=== PATIENT | female | born 1990 | race Caucasian/White ===

== ENCOUNTER 2016-10-26 23:40 | Outpatient (CLI) | payer OTHER ==
[~2016-10-26] VITALS: Ht 157.5 cm; Wt 59.1 kg
[~2016-10-26 23:40] MED LIST: LORA1TAB PO
[2016-10-26 23:47] VITALS: Ht 157.5 cm; Wt 59.1 kg
[2016-10-26 23:53] VITALS: BP 114/75; PULSE 66; RESP 16
[2016-10-26] MEDS ORDERED: PRENAT PO (23:54)
[2016-10-27 01:17] LABS: ADD UMIC YES; URINE BILIRUBIN (Dip) NEGATIVE (NEGATIVE); URINE BLOOD (Dip) NEGATIVE (NEGATIVE); URINE COLOR LT. YELLOW (YELLOW); URINE GLUCOSE (Dip) NEGATIVE (NEGATIVE); URINE KETONES (Dip) NEGATIVE (NEGATIVE); URINE LEUKOCYTE ESTERASE (Dip) 1+ (NEGATIVE); URINE NITRITE (Dip) NEGATIVE (NEGATIVE); URINE TOTAL PROTEIN (Dip) NEGATIVE (NEGATIVE); URINE UROBILINOGEN (Dip) 0.2 E.U./dL (0.1-1.0)
--- NOTE | 2016-10-27 01:20 | RADRPT ---
PROCEDURE: Obstetrical ultrasound, limited. CLINICAL INDICATION: labor. TECHNIQUE: Multiple sonographic images of the pelvis were obtained using transabdominal technique . Images were obtained with mclean scale and color Doppler. Transvaginal evaluation of the cervix was also performed. The images were reviewed on a PACS workstation. COMPARISON: No prior studies are available for comparison. FINDINGS: There is a single living intrauterine gestation with the fetus in a breech presentation. hear t tones of 143 beats per minute are identified. The placenta is fundal in location, grade 1. The c ervix is closed measuring 3.0 cm. IMPRESSION: Single viable intrauterine gestation. Cervical length of 3.0 cm. .Dangelo Alonso MD, Date Time Electronically viewed and signed by .Dangelo Alonso MD, MD on 10/27/2016 01:19 .T/
[2016-10-27 01:38] LABS: BACTERIA,URINE MODERATE; SQUAMOUS EPITHELIAL CELL,UR MODERATE; URINE RBCS 0-2 /HPF (0)
--- NOTE | 2016-10-27 02:02 | TRIAGE ---
OB Triage Datetime Report Generated by CPN: 10/27/2016 02:02 Datetime: 10/27/2016 00:05 EGA: 27.6 Datetime: 10/26/2016 23:55 Time of Arrival: 10/26/2016 23:37 Arrived By: Wheelchair Arrived From: Home Chief Complaint: VAGINAL PAIN CRAMPING Movement: Present Contractions: Irregular Time Contractions Began: 10/26/2016 19:00 Rupture of Membranes: Denies Vaginal Bleeding: None Vaginal Discharge: Denies Recent Sexual Intercouse: Denies Abdominal Trauma: Not Applicable Patient Complaints: Cramping; Dependent Edema; Other Additional Patient Complaints: SWOLLEN FEET SPIDER BITE ON LEGS/FEET Time Provider Notified: 10/27/2016 00:05 Provider Notified: DR. GOMEZ Initial Plan: EFM Datetime: 10/26/2016 23:49 Labor Evaluation Monitor Mode: External Heart Rate Monitor Mode: External US Comments: FHT 150 Pain Assessment Pain Scale: 8 Pain Presence: Intermittent Pain Type: Cramping Pain Location: Abdomen Pain Goal: 2
--- NOTE | 2016-11-09 23:31 | QN ---
Documentation Comment OB TRIAGE Diagnosi: Threatened labor SAIMA GOMEZ MD Nov 09, 2016 23:31
== END 2016-10-27 02:05 | disposition home or self-care (01) ==
LOC: OBT 23:40 → L-D 23:40 → OBT 10-27 02:05
PROVIDERS: ATTEND Obstetrics & Gynecology
DX: O60.02 Preterm labor without delivery, second trimester (principal); Z3A.27 27 weeks gestation of pregnancy
CPT/HCPCS: 76817; 81001; Z7500; G0463

== ENCOUNTER 2016-11-23 22:09 | Inpatient (IN) | payer OTHER ==
[~2016-11-23] VITALS: Ht 157.5 cm; Wt 62.7 kg
[~2016-11-23 22:09] MED LIST changes: -LORA1TAB PO; +PRENAT PO
[2016-11-23 22:14] VITALS: BP 165/104; PULSE 65; RESP 18
[2016-11-23 22:30] LABS: URINE BLOOD (Dip) POC 1+ (NEGATIVE)
[2016-11-23] MEDS ORDERED: MAGNESIUM SULFATE 4 GM/100 ML 100 ML IV ONE (23:00)
[2016-11-23] MEDS ORDERED: ACETAMINOPHEN 325 MG TAB PO PRN (23:00)
[2016-11-23 23:01] LABS: ADD UMIC YES; UR BILIRUBIN (Dip) NEGATIVE (NEGATIVE); UR BLOOD (Dip) 1+ (NEGATIVE); UR CLARITY CLEAR (CLEAR); UR COLOR YELLOW (YELLOW); UR GLUCOSE (Dip) NEGATIVE (NEGATIVE); UR KETONES (Dip) NEGATIVE (NEGATIVE); UR LEUKOCYTE ESTERASE (Dip) NEGATIVE (NEGATIVE); UR NITRITE (Dip) NEGATIVE (NEGATIVE); UR TOTAL PROTEIN (Dip) 4+ (NEGATIVE); UR UROBILINOGEN (Dip) 0.2 E.U./dL (0.1-1.0)
[2016-11-23 23:12] LABS: ADD SCAN DIFF NO
[2016-11-23 23:13] LABS: BASOPHILS % 0.2 % (0.0-2.0); EOSINOPHILS # 0.1 10^3/ul (0.0-0.5); EOSINOPHILS % 0.6 % (0.0-7.0); HEMATOCRIT 32.8 % (37.0-47.0); HEMOGLOBIN 11.3 g/dl (12.0-16.0); LYMPHOCYTES # 2.6 10^3/ul (0.8-2.9); LYMPHOCYTES % 26.2 % (15.0-51.0); MEAN CORPUSCULAR HEMOGLOBIN 32.5 pg (29.0-33.0); MEAN CORPUSCULAR HGB CONC 34.5 g/dl (32.0-37.0); MEAN CORPUSCULAR VOLUME 94.3 fl (82.0-101.0); MEAN PLATELET VOLUME 10.3 fl (7.4-10.4); MONOCYTE # 0.7 10^3/ul (0.3-0.9); MONOCYTES % 7.1 % (0.0-11.0); NEUTROPHIL # 6.4 10^3/ul (1.6-7.5); NEUTROPHILS % 65.4 % (39.0-77.0); PLATELET COUNT 228 10^3/UL (140-415); RED BLOOD COUNT 3.48 10^6/ul (4.20-5.40); RED CELL DISTRIBUTION WIDTH 12.5 % (11.5-14.5); WHITE BLOOD COUNT 9.8 10^3/ul (4.8-10.8)
[2016-11-23 23:18] LABS: UR BACTERIA FEW /HPF (NONE SEEN); UR SQUAMOUS EPITHELIAL CELL FEW /HPF (FEW)
--- NOTE | 2016-11-23 23:22 | RADRPT ---
PROCEDURE: OB ultrasound for biophysical profile CLINICAL INDICATION: labor. TECHNIQUE: Multiple sonographic images of the gravid uterus performed. The images were reviewed on a PACS workstation. COMPARISON: 10/27/2016 FINDINGS: A single live intrauterine is identified with heart rate of 161 bpm. Fet us is in a cephalic presentation. Placenta is located posteriorly. Biophysical profile: breathing movement = 2/2 tone = 2/2 motion = 2/2 ANT = 2/2 ANT = 6.2 cm. Cervix is 3.42 cm in length. IMPRESSION: 1. Single live intrauterine gestation. 2. Biophysical profile = 8/8. 3. ANT = 6.2 cm. RPTAT: HMVK .Jeffrey West MD, MD Date Time Electronically viewed and signed by .Jeffrey West MD, MD on 11/23/2016 23:22 .K/
--- NOTE | 2016-11-23 23:24 | RADRPT ---
PROCEDURE: US OB. CLINICAL INDICATION: labor. TECHNIQUE: Multiple sonographic images of the pelvis were obtained. Transabdominal imaging only w as performed. The images were reviewed on a PACS workstation. COMPARISON: None. FINDINGS: Single live intrauterine is identified. Cardiac activity is present with 150 beats per mi nute. There is a vertex presentation. Measurements: BPD = 29 weeks 3 days. HC = 29 weeks 4 days. AC = 29 weeks 0 days. FL = 30 weeks 4 days. Estimated gestational age of approximately 29 weeks 5 days. The estimated date of delivery is 02/03/2017. The EFW = 1423 g which is at the less than 3rd percentile. The placenta is posterior. IMPRESSION: Single live intrauterine gestation of approximately 29 weeks 5 days. weight is at the less th an 3rd percentile. RPTAT: HMVK .Jeffrey West MD, MD Date Time Electronically viewed and signed by .Jeffrey West MD, MD on 11/23/2016 23:24 .K/
[2016-11-23 23:29] LABS: INR 0.84; PROTIME 11.5 Sec (12.2-14.2); PT RATIO 0.9
[2016-11-23 23:30] LABS: PARTIAL THROMBOPLASTIN TIME 25.1 Sec (25.0-35.0)
[2016-11-23] MEDS: LACTATED RINGER'S 1,000 ML IV SCH (23:31)
[2016-11-23 23:32] LABS: ALBUMIN 3.3 g/dl (3.3-4.9); ALBUMIN/GLOBULIN RATIO 1.22; BILIRUBIN,INDIRECT 0.1 mg/dl (0-1.1); BILIRUBIN,TOTAL 0.1 mg/dl (0.2-1.3); CALCIUM 8.6 mg/dl (8.4-10.2); CREATININE 0.89 mg/dl (0.44-1.00); POTASSIUM 4.1 mmol/L (3.5-5.1); URIC ACID 6.3 mg/dl (3.1-7.9)
[2016-11-23] MEDS: BETAMET NA PHOS/AC(6 MG/ML) 5ML INJ IM SCH (23:46)
[2016-11-24] MEDS: MAGNESIUM SULFATE 20 GM/500 ML 500 ML IV SCH ×3 (00:14→20:07)
--- NOTE | 2016-11-24 05:52 | TRIAGE ---
OB Triage Datetime Report Generated by CPN: 11/24/2016 05:51 Datetime: 11/24/2016 04:40 Assessment Type: Admission Assessment Vaginal Bleeding: None Maternal Assessment Level of Consciousness: Fully Conscious DTR's/Clonus: DTRs 2+; No Clonus Headache: Denies Blurred Vision: No Respiratory Effort: Unlabored Breath Sounds, Left: Clear and Equal Breath Sounds, Right: Clear and Equal Nausea/Vomiting: Denies RUQ Epigastric Pain: Denies Lower Extremities Edema: None Degree: None Upper Extremities Edema: None Degree: None Facial Edema: None Fall Risk Assessment History of Falling: (0) No Secondary Diagnosis: (0) No Ambulatory Aid: (0) Bedrest/Nurse Assist IV Therapy: (20) Yes Gait: (0) Normal/Bedrest/Immobile Mental Status: (0) Oriented to Own Ability Fall Score: 20 Fall Risk Score Definition: No Risk: No action required Labor Evaluation Frequency: 0 Duration (sec)2399: 0 Pattern: Normal: <= 5 Contractions in 10 Minutes Resting Tone [place]: Relaxed Heart Rate FHR Baseline Rate: 135 Variability: Moderate 6-25 bpm Decelerations: None Category: Category I Pain Assessment Pain Scale: 0 Pain Presence: None/Denies Pain Type: N/A Pain Goal: 0 Vaginal Exam Membrane Status: Intact Datetime: 11/24/2016 04:20 Time of Arrival: 11/23/2016 22:01 EGA: 31.6 Arrived By: Wheelchair Arrived From: Home Chief Complaint: w/ c/o high BP in morning, WORRELL, heartburn, pelvic pain, pedal edema, and anxi ety. Hx iol at 34 weeks for PIH last Movement: Present Contractions: Denies/Absent Rupture of Membranes: Denies Vaginal Bleeding: None Vaginal Discharge: Denies Recent Sexual Intercouse: Denies Abdominal Trauma: Not Applicable Patient Complaints: Headache; Epigastric Pain; Dependent Edema; Other Provider Notified: Dr Oquendo Initial Plan: EFM, PIH labs Datetime: 11/24/2016 04:13 Stage of : Antepartum Datetime: 11/24/2016 01:44 Contraction Comments: just come back from br Datetime: 11/24/2016 00:01 Vaginal Exam Membrane Status: Intact Datetime: 10/27/2016 01:54 Stage of : OB Triage Monitor Mode: External Pattern: Normal: <= 5 Contractions in 10 Minutes Resting Tone [place]: Relaxed Heart Rate FHR Baseline Rate: 145 Monitor Mode: External US FHR Baseline Changes: No Baseline Change Variability: Moderate 6-25 bpm Accelerations: 15X15 Decelerations: None Category: Category I Datetime: 10/27/2016 00:05 EGA: 27.6
[2016-11-24] MEDS: LACTATED RINGER'S 1,000 ML IV SCH ×2 (09:02→20:27)
[2016-11-24] MEDS: SENNA TAB PO SCH (10:53)
[2016-11-24] MEDS: MULTIVIT/MIN/FOLATE/IRON/PREN TAB PO SCH (10:53)
[2016-11-24] MEDS: AL HYDROX/MG HYDROX/SIMETH 30 ML CUP PO PRN ×2 (10:59→20:08)
--- NOTE | 2016-11-24 11:33 | HP ---
Date/Time of Note Date/Time of Note DATE: 11/24/16 TIME: 10:57 OB - History Hx of Present Free Text/Dictation 26y.o [id number] EDC 01/19/17 who had PTB with last at 34w present to triage with c/o pelvic pain , heartburn(?epigastric pain) and pedal edema and mentioned she had high BP in the morning, denies blurred vision headache EFM no U.C U/S ANT 6.2 GA 29w5d - EFW 1423gm 3percentile cvl 3.4 BPP 8/8 urine protein ++++ but no increase DTR no ankle clonusPIH l initial B P 165/104 f/b 170/111 pt is extremely nervous magnesium sulfate was initiate with loading dose of 4gm BMZ given for poss early delivery since IUGR and PIH and oligohydroamnious combined PIH lab wnl except proteinuria 24hr urine for proein/cr admitted to antepartum for further evaluation and poss early delivery after perianatalogy consultation Chief Complaint: above mentioned Estimated Due Date: Jan 19, 2017 : 4 Para: 3 Spontaneous : 0 Therapeutic : 0 Care: Other Ultrasounds: Other Obstetrical Complications: Pre-eclampsia Medical Complications: None Past Family/Social History * Past Medical, Surgical, Family and Obstetric Histories reviewed from chart. Blood Type: A+ Rubella: immune RPR/VDRL: Negative GBS Status: Unknown HBsAG: Negative OB Admission Exam Vital Signs Vital Signs Vital Signs Date Time Temp Pulse Resp B/P Pulse Ox O2 Delivery O2 Flow Rate FiO2 11/23/16 22:14 98.4 65 18 165/104 Room Air Physical Exam HEENT: WNL Extremities: Edema Reflexes: Normal Cervical Dilatation: other Effacement: Other Station: Other Membranes: Intact Amniotic Fluid: Unevaluable Heart Rate: 150's Accelerations: Accelerations Present Decelerations: No Decelerations Varibility: Minimum Contractions on Admission: None Last 72 hours Lab Results CBC & BMP 11/23/16 23:05 Liver Function Test 11/23/16 23:05 Alanine Aminotransferase (ALT/SGPT) 26 Albumin 3.3 Alkaline Phosphatase 139 H Aspartate Amino Transf (AST/SGOT) 18 Direct Bilirubin 0.00 Total Protein 6.0 L Magnesium Level Test 6/21/17 05:55 Magnesium Level 6.0 *H OB Assessment/Plan Other Assessment: IUP 31w4d PIH IUGR oligohydramnios Other plan: admit to antepartum continue magnesium sulfate 24hr after 2nd dose of BMZ 24 hr urine for protein /cr TATIANNA AMAYA MD Nov 24, 2016 11:10
--- NOTE | 2016-11-24 12:02 | RADRPT ---
PROCEDURE: Obstetrical ultrasound with umbilical cord Dopplers CLINICAL INDICATION: Intrauterine growth retardation TECHNIQUE: Multiple sonographic images of the pelvis were obtained. The images were reviewed on a PACS workstation. COMPARISON: Obstetrical ultrasound from 11/23/2016 Gestational age by LMP: 32 weeks, 1 day FINDINGS: There is a single viable intrauterine gestation. Cardiac activity is present with 131 beats per minute. There is a vertex presentation. The placenta is posterior. There is no evidence for an abruption or placenta previa. There is a mildly low amount of amniotic fluid with an ANT = 7.5 cm. The umbilical cord is visualized and without abnormality. The umbilical artery has a systolic to diastolic ratio of 2.6 which is within normal limits. IMPRESSION: The umbilical artery has a systolic to diastolic ratio of 2.6 which is within normal limits. Mildly low ANT of 7.5 cm which is improved compared with the obstetrical ultrasound from yesterday w [facility] had an ANT of 6.2 cm. RPTAT: EE Physician Lilly Date Time Electronically viewed and signed by Physician Lilly on 11/24/2016 12:02 /
[2016-11-24] MEDS: LABETALOL 200 MG TAB PO SCH ×2 (12:49→21:08)
[2016-11-24 12:58] LABS: ADD SCAN DIFF NO
[2016-11-24 13:00] LABS: BASOPHILS % 0.1 % (0.0-2.0); HEMOGLOBIN 12.6 g/dl (12.0-16.0); LYMPHOCYTES # 1.1 10^3/ul (0.8-2.9); LYMPHOCYTES % 13.5 % (15.0-51.0); MEAN CORPUSCULAR HEMOGLOBIN 33.1 pg (29.0-33.0); MEAN CORPUSCULAR VOLUME 94.5 fl (82.0-101.0); MEAN PLATELET VOLUME 10.9 fl (7.4-10.4); MONOCYTE # 0.1 10^3/ul (0.3-0.9); MONOCYTES % 1.2 % (0.0-11.0); NEUTROPHIL # 6.8 10^3/ul (1.6-7.5); NEUTROPHILS % 84.5 % (39.0-77.0); PLATELET COUNT 232 10^3/UL (140-415); RED BLOOD COUNT 3.81 10^6/ul (4.20-5.40); RED CELL DISTRIBUTION WIDTH 12.4 % (11.5-14.5); WHITE BLOOD COUNT 8.1 10^3/ul (4.8-10.8)
[2016-11-24 13:27] LABS: ALBUMIN 3.6 g/dl (3.3-4.9); ALBUMIN/GLOBULIN RATIO 1.28; CALCIUM 6.9 mg/dl (8.4-10.2); CREATININE 0.83 mg/dl (0.44-1.00); POTASSIUM 4.3 mmol/L (3.5-5.1); TOTAL PROTEIN 6.4 g/dl (6.1-8.1)
--- NOTE | 2016-11-24 14:48 | CONS ---
DATE OF ADMISSION: 11/23/2016 DATE OF CONSULTATION: 11/24/2016 REFERRING PHYSICIAN: Dr. Weston. HISTORY OF PRESENT ILLNESS: I was asked to talk with this mother who is being admitted to [facility] with a 32-week gestation and PIH. Maternal history is as follows: Jarrod heller is a 26-year-old 4, para 3, term 2, 1 and living 3 with good care. ED C 01/19/2017. Mother's blood type is A positive, RPR nonreactive, rubella immune, HBsAg negative, H IV negative, GC and chlamydia cultures negative and GBS not done. Mother was admitted with increase d blood pressure and was given the first dose of betamethasone on 11/23/2016 at 2346 hours, and was also started on magnesium sulfate on 11/23/2016 at 2339 hours. Mother has history of delivery of on e at 34 weeks. The ultrasound on 11/23/2016 showed an estimated weight of 1423 grams and composite gest ational age of 29.5 weeks on ultrasound. EDC on ultrasound was 02/03/2017. I spoke with mother and mother seems to have a severe headache due to magnesium administration and h er last magnesium level was 7. I discussed with her about the being 32 weeks, small compared to usual 32 week delivery infants. I discussed about the risk of respiratory distress and treatmen t with oxygen administration, CPAP administration and possible Curosurf administration if the infant has respiratory distress syndrome. I also discussed about apnea of prematurity and treatment for t hat. I also discussed about the infant to be monitored for hyperbilirubinemia and treatment for jau ndice as well as possible antibiotic administration if infant is at risk for sepsis. Discussed abou t IV nutrition initially to be followed by tube feedings and subsequently to be nippled when the inf ant shows readiness for nippling. I discussed about the risk of developmental delay and intraventri cular hemorrhage, but not discussed in depth, as the mother had difficulty focusing as she had heada adilia. Mother wanted to know the overall health of the infant and I discussed with her about more than 95% of the infants doing well and going home with no significant problems. I also discussed about the i nfant to be monitored for all problems of prematurity during hospitalization and she will be updated on a regular basis. Encouraged her to pump breast milk, as mother is unsure at the present time. Discussed about good prognosis as well as outcome and concluded the discussion, as mother was unable to concentrate. Mother has 3 children at home, age 7 years, 5 years and 2 years. Dictated By: BRIANA RUIZ/NTS Conf#: [id number] DID#: [id number] CC: JOSELUIS WESTON MD;*EndCC*
[2016-11-24] MEDS: BETAMET NA PHOS/AC(6 MG/ML) 5ML INJ IM SCH (21:50)
[2016-11-24 22:27] LABS: ADD SCAN DIFF NO
[2016-11-24 22:30] LABS: BASOPHILS % 0.1 % (0.0-2.0); HEMATOCRIT 33.6 % (37.0-47.0); HEMOGLOBIN 11.6 g/dl (12.0-16.0); LYMPHOCYTES # 1.4 10^3/ul (0.8-2.9); MEAN CORPUSCULAR HEMOGLOBIN 32.3 pg (29.0-33.0); MEAN CORPUSCULAR HGB CONC 34.5 g/dl (32.0-37.0); MEAN CORPUSCULAR VOLUME 93.6 fl (82.0-101.0); MEAN PLATELET VOLUME 10.3 fl (7.4-10.4); MONOCYTE # 0.7 10^3/ul (0.3-0.9); MONOCYTES % 5.5 % (0.0-11.0); NEUTROPHIL # 10.3 10^3/ul (1.6-7.5); NEUTROPHILS % 82.3 % (39.0-77.0); PLATELET COUNT 232 10^3/UL (140-415); RED BLOOD COUNT 3.59 10^6/ul (4.20-5.40); RED CELL DISTRIBUTION WIDTH 12.5 % (11.5-14.5); WHITE BLOOD COUNT 12.5 10^3/ul (4.8-10.8)
--- NOTE | 2016-11-24 22:45 | PERINOTE ---
Date/Time of Note Date/Time of Note DATE: 11/24/16 TIME: 22:36 Assessment/Recommendations Other Assessments Preeclampsia with severe features (BP) IUP at 34 weeks GA Recommendations: Agree with plan for delivery at this time due to category 2 FHT record and maternal hyperreflexia OB Subjective Free Text/Dictaton Patient admitted with hypertension, new onset, likely preeclampsia. HD# 1 IUP @ 34W Complaints/Overnight events Complains of chest pain and blurry vision with magnesium Current Medications Current Medications Betamethasone Acet/Betameth SodPhos (Celestone Soluspan) 12 mg Q24H IM Last administered on 11/24/16 21:50; Admin Dose 12 MG; Start 11/23/16 at 23:00; Stop 11/24/16 at 23:01 Prenat Multivit/ Childcare Aide/Iron/Folic Ac ( S) 1 tab DAILY PO Last administered on 11/24/16 10:53; Admin Dose 1 TAB; Start 11/24/16 at 09:00 Senna (Senokot) 1 tab DAILY PO Last administered on 11/24/16 10:53; Admin Dose 1 TAB; Start 11/24/16 at 09:00 Acetaminophen (Tylenol Tab) 650 mg Q4H PRN PO PAIN AND OR ELEVATED TEMP Last administered on 11/24/16 18:19; Admin Dose 650 MG; Start 11/23/16 at 23:00 Al Hydrox/Mg Hydrox/Simethicone (Mag-Al Plus) 30 ml Q6H PRN PO GASTROINTESTINAL UPSET Last administered on 11/24/16 20:08; Admin Dose 30 ML; Start 11/23/16 at 23:00 Ondansetron HCl (Zofran Inj) 4 mg Q6H PRN IV NAUSEA AND/OR VOMITING; Start at 23:00 Labetalol HCl 200 mg 200 mg BID PO Last administered on 11/24/16 21:08; Admin Dose 200 MG; Start 11/24/16 at 10:30 Lactated Ringer's (Lr) 1,000 ml @ 100 mls/hr Q10H IV Last administered on 11/24 20:27; Admin Dose 100 MLS/HR; Start 11/24/16 at 20:10 OB Admission Exam Physical Exam Vitals: Vital Signs Date Time Temp Pulse Resp B/P Pulse Ox O2 Delivery O2 Flow Rate FiO2 11/23/16 22:14 98.4 65 18 165/104 Room Air 11/24/16 134/90 Heart: Rhythm Normal Lungs: Clear Abdomen: WNL Extremities: Normal Reflexes: Hyperreflexia Present Heart Rate: 130's Accelerations: No Accelerations Decelerations: No Decelerations Varibility: Minimum Contractions on Admission: None Last 72 hours Lab Results CBC & BMP 11/23/16 23:05 11/24/16 12:30 11/24/16 22:18 Liver Function Test 11/23/16 23:05 11/24/16 12:30 Alanine Aminotransferase (ALT/SGPT) 26 23 Albumin 3.3 3.6 Alkaline Phosphatase 139 H 172 H Aspartate Amino Transf (AST/SGOT) 18 22 Direct Bilirubin 0.00 0.00 Total Protein 6.0 L 6.4 Magnesium Level Test 11/24/16 05:55 11/24/16 12:30 11/24/16 17:55 Magnesium Level 6.0 *H 7.1 *H 6.9 *H Ultrasound Results EFW 1423 (3%) BPP 8/8 ANT 6.2 Copies To: CC: JOSELUIS WESTON MD, MARIE H MD Nov 24, 2016 22:44
[2016-11-24 22:47] LABS: ALBUMIN 3.3 g/dl (3.3-4.9); ALBUMIN/GLOBULIN RATIO 1.22; CALCIUM 6.4 mg/dl (8.4-10.2); CREATININE 0.77 mg/dl (0.44-1.00); POTASSIUM 3.9 mmol/L (3.5-5.1); URIC ACID 5.9 mg/dl (3.1-7.9)
[2016-11-24 23:15] LABS: INR 0.87; PARTIAL THROMBOPLASTIN TIME 23.4 Sec (25.0-35.0); PROTIME 11.8 Sec (12.2-14.2); PT RATIO 0.9
[2016-11-24] MEDS ORDERED: CEFAZOLIN 2 GM/50 ML (PMX) 50 ML IVPB ONE (23:27)
[2016-11-24] MEDS ORDERED: morphine SULFATE/PF (10 MG/10 ML) INJ ONE (23:30)
[2016-11-24] MEDS ORDERED: METOCLOPRAMIDE 10 MG INJ ONE (23:30)
[2016-11-24] MEDS ORDERED: OXYTOCIN 30 UNITS/LR 500 ML IV ONE (23:30)
[2016-11-24] MEDS ORDERED: ONDANSETRON 4 MG INJ ONE (23:30)
[2016-11-24] MEDS ORDERED: EPHEDrine SULFATE 50 MG/5 ML SYG ONE (23:30)
[2016-11-24] MEDS ORDERED: OXYTOCIN 10 UNIT INJ ONE (23:30)
[2016-11-25] MEDS ORDERED: NALOXONE (0.4 MG/ML) INJ IV PRN
[2016-11-25] MEDS ORDERED: HYDROmorphONE 1 MG/ML SYG IV PRN ×2
[2016-11-25] MEDS ORDERED: MAGNESIUM SULFATE 20 GM/500 ML 500 ML IV SCH
[2016-11-25] MEDS ORDERED: morphine SULFATE/PF (10 MG/10 ML) INJ SPINAL ONE
[2016-11-25] MEDS ORDERED: KETOROLAC 30 MG INJ IV PRN
[2016-11-25] MEDS ORDERED: DIPHENHYDRAMINE 50 MG INJ IV PRN
[2016-11-25] MEDS ORDERED: CEFAZOLIN 2 GM/50 ML (PMX) 50 ML IVPB ONE
[2016-11-25] MEDS ORDERED: morphine 2 MG INJ IV PRN ×2
[2016-11-25] MEDS ORDERED: EPHEDrine SULFATE 50 MG/5 ML SYG IV PRN
[2016-11-25] MEDS: LACTATED RINGER'S 1,000 ML IV SCH ×5 (01:18→17:18)
--- NOTE | 2016-11-25 01:29 | OPR ---
Date/Time of Note Date/Time of Note DATE: 11/25/16 TIME: 01:23 Operative Report Free Text/Dictation Patient is at 32+ wks gestation with PIH, severe IUGR EFW 1423grams/ less than 3%percentile s/p mgso4, s/p two doses of steroids non-reassuring CAT II heart rate tracing Preoperative Diagnosis Severe IUGR, non-reassuring FHR tracing Postoperative Diagnosis Severe IUGR, non-reassuring FHR tracing Operation/Procedure Performed Primary [facility] Surgeon: SUSHIL ARREAGA MD assistant sales manager: JOSE CHO Anesthesia: spinal Estimated Blood Loss: other (500) Specimens placenta Complications: None SUSHIL ARREAGA MD Nov 25, 2016 01:29
[2016-11-25] MEDS ORDERED: METHYLERGONOVINE 0.2 MG INJ IM PRN (01:30)
[2016-11-25] MEDS ORDERED: LABETALOL 200 MG TAB PO SCH (01:30)
[2016-11-25] MEDS ORDERED: ONDANSETRON 4 MG INJ IV PRN ×2 (01:30)
[2016-11-25] MEDS ORDERED: SENNA/DOCUSATE NA (8.6MG/50MG) TAB PO PRN (01:30)
[2016-11-25] MEDS ORDERED: BISACODYL 10 MG SUPP PR PRN (01:30)
[2016-11-25] MEDS ORDERED: MAGNESIUM HYDROXIDE 30ML CUP PO PRN (01:30)
[2016-11-25] MEDS ORDERED: OXYTOCIN 30 UNITS/LR 500 ML IV PRN (01:30)
[2016-11-25] MEDS ORDERED: LANOLIN 7 GM TUBE TOP PRN (01:30)
[2016-11-25] MEDS ORDERED: CARBOPROST 250 MCG INJ IM PRN (01:30)
[2016-11-25] MEDS ORDERED: ACETAMINOPHEN 325 MG TAB PO PRN (01:30)
[2016-11-25] MEDS ORDERED: CEFAZOLIN 1 GM/50 ML (PMX) 50 ML IV SCH (01:30)
[2016-11-25] MEDS ORDERED: MISOPROSTOL 200 MCG TAB PR PRN (01:30)
--- NOTE | 2016-11-25 01:37 | OPR ---
Date/Time of Note Date/Time of Note DATE: 11/25/16 TIME: 01:36 Operative Report Free Text/Dictation Patient is at 32+ wks gestation with PIH, severe IUGR EFW 1423grams/ less than 3%percentile s/p mgso4, s/p two doses of steroids non-reassuring CAT II heart rate tracing Procedure Date: Nov 25, 2016 Preoperative Diagnosis Severe IUGR, non-reassuring FHR tracing Postoperative Diagnosis Severe IUGR, non-reassuring FHR tracing Operation Performed Primary [facility] Surgeon: SUSHIL ARREAGA MD it assistant: JOSE CHO Anesthesia: spinal Estimated Blood Loss: other (500) Specimens placenta Complications: None Pt Condition Post Procedure: stable Disposition: PACU Indications Severe IUGR, non-reassuring FHR tracing Operative\Procedure Findings Primary [facility] Procedure Description Patient was taken to the operating room after adequate amount of anesthesia was given patient was prepped and draped in normal sterile fashion A Pfannenstiel skin incision was made, incision was carried through the underlying layer of fascia. Fascia was incised in the midline and extended bilaterally using Bovie Both anterior and posterior edge of the fascia were grasped with [place] clamps and elevated and tented up and from underlying layer of rectus muscles Rectus muscles were in the midline and peritoneum was identified. Peritoneum was entered sharply with Metzenbaum scissors without any incident Peritoneal incision was extended manually. An Rafael retractor was placed intra -abdominally Bladder flap was created using Metzenbaum scissors sharply. Bladder blade was placed for protection of bladder Low transverse uterine incision was made with the scalpel and the incision was extended bilaterally manually Fetus was delivered from vertex presentation atraumatically and handed off to the waiting automotive technician instructor team Placenta was delivered intact manually and noted with three-vessel cord Uterine cavity was cleared off of all clot and debris. Uterine incision was closed with 1 Vicryl suture in running locked fashion. A second layer closure was proceeded with the same suture in an imbricating fashion. Abdominal cavity was irrigated and all clots and debris were removed. Excellent hemostasis was noted on lower uterine incision line Surgicel material was placed on uterine incision. Rafael retractor was removed. Peritoneum closure was proceeded with 2-0 Vicryl in running fashion. Rectus muscles were reapproximated using 2-0 Vicryl in an interrupted fashion. Fascial closure proceeded with 0 Vicryl in running fashion in 2 separate segments Subcutaneous closure proceeded with 2.0 plain suture in an interrupted fashion Skin was closed with end-sorb elsy and Dermabond All sponge lap needle counts were correct. Patient tolerated the procedure well and taken back to recovery room in stable condition SUSHIL ARREAGA MD Nov 25, 2016 01:37
[2016-11-25] MEDS: OXYTOCIN 30 UNITS/LR 500 ML IV SCH ×3 (02:07→07:57)
[2016-11-25] MEDS ORDERED: MEPERIDINE 25 MG INJ IM ONE (04:30)
[2016-11-25 08:00] VITALS: BP 161/102; PULSE 59; RESP 19
[2016-11-25] MEDS: ONDANSETRON 4 MG INJ IV PRN (08:05)
[2016-11-25 08:30] VITALS: BP 145/99; PULSE 59; RESP 16
[2016-11-25] MEDS: SENNA TAB PO SCH (09:00)
[2016-11-25] MEDS: MULTIVIT/MIN/FOLATE/IRON/PREN TAB PO SCH (09:00)
[2016-11-25 09:15] VITALS: BP 141/96; PULSE 67; RESP 67
[2016-11-25] MEDS: LABETALOL 200 MG TAB PO SCH ×2 (09:16→21:12)
[2016-11-25 10:11] LABS: ADD SCAN DIFF NO
[2016-11-25 10:17] LABS: BASOPHILS % 0.1 % (0.0-2.0); HEMATOCRIT 34.7 % (37.0-47.0); HEMOGLOBIN 12.1 g/dl (12.0-16.0); LYMPHOCYTES # 0.9 10^3/ul (0.8-2.9); LYMPHOCYTES % 4.8 % (15.0-51.0); MEAN CORPUSCULAR HEMOGLOBIN 32.9 pg (29.0-33.0); MEAN CORPUSCULAR HGB CONC 34.9 g/dl (32.0-37.0); MEAN CORPUSCULAR VOLUME 94.3 fl (82.0-101.0); MEAN PLATELET VOLUME 10.4 fl (7.4-10.4); MONOCYTES % 5.3 % (0.0-11.0); NEUTROPHIL # 17.1 10^3/ul (1.6-7.5); PLATELET COUNT 219 10^3/UL (140-415); RED BLOOD COUNT 3.68 10^6/ul (4.20-5.40); RED CELL DISTRIBUTION WIDTH 12.4 % (11.5-14.5); WHITE BLOOD COUNT 19.2 10^3/ul (4.8-10.8)
[2016-11-25 10:33] LABS: ALBUMIN 3.1 g/dl (3.3-4.9); ALBUMIN/GLOBULIN RATIO 1.14; BILIRUBIN,INDIRECT 0.1 mg/dl (0-1.1); BILIRUBIN,TOTAL 0.1 mg/dl (0.2-1.3); CALCIUM 6.5 mg/dl (8.4-10.2); CREATININE 0.74 mg/dl (0.44-1.00); POTASSIUM 4.4 mmol/L (3.5-5.1); TOTAL PROTEIN 5.8 g/dl (6.1-8.1)
[2016-11-25 12:00] VITALS: BP 142/99; PULSE 60; RESP 18
[2016-11-25] MEDS: CEFAZOLIN 1 GM/50 ML (PMX) 50 ML IVPB SCH ×2 (12:05→20:08)
[2016-11-25 16:00] VITALS: BP 148/98; PULSE 63; RESP 17
[2016-11-25 19:45] VITALS: BP 141/93; RESP 18
[2016-11-26] VITALS (12 sets, daily range): BP systolic 127–198; BP diastolic 68–111; PULSE 60–89; RESP 18–19
[2016-11-26] MEDS: LACTATED RINGER'S 1,000 ML IV SCH ×4 (01:18→22:10)
[2016-11-26] MEDS: OXYCODONE/ACETAMINOPHEN (5/325) TAB PO PRN ×4 (03:14→22:34)
[2016-11-26 07:37] LABS: ADD SCAN DIFF NO
[2016-11-26 07:53] LABS: BASOPHILS % 0.2 % (0.0-2.0); HEMATOCRIT 34.6 % (37.0-47.0); HEMOGLOBIN 11.8 g/dl (12.0-16.0); LYMPHOCYTES # 1.8 10^3/ul (0.8-2.9); LYMPHOCYTES % 11.2 % (15.0-51.0); MEAN CORPUSCULAR HGB CONC 34.1 g/dl (32.0-37.0); MEAN CORPUSCULAR VOLUME 96.6 fl (82.0-101.0); MEAN PLATELET VOLUME 10.9 fl (7.4-10.4); MONOCYTE # 0.9 10^3/ul (0.3-0.9); MONOCYTES % 5.7 % (0.0-11.0); NEUTROPHILS % 81.7 % (39.0-77.0); PLATELET COUNT 211 10^3/UL (140-415); RED BLOOD COUNT 3.58 10^6/ul (4.20-5.40); RED CELL DISTRIBUTION WIDTH 12.8 % (11.5-14.5); WHITE BLOOD COUNT 15.9 10^3/ul (4.8-10.8)
[2016-11-26] MEDS: LABETALOL 200 MG TAB PO SCH ×2 (08:31→21:26)
[2016-11-26] MEDS: SENNA TAB PO SCH (08:31)
[2016-11-26] MEDS: IBUPROFEN 600 MG TAB PO PRN ×2 (08:31→16:13)
[2016-11-26] MEDS: MULTIVIT/MIN/FOLATE/IRON/PREN TAB PO SCH (08:31)
[2016-11-26 08:58] LABS: ALBUMIN 2.7 g/dl (3.3-4.9); ALBUMIN/GLOBULIN RATIO 1.08; CREATININE 0.77 mg/dl (0.44-1.00); POTASSIUM 4.6 mmol/L (3.5-5.1); TOTAL PROTEIN 5.2 g/dl (6.1-8.1)
--- NOTE | 2016-11-26 17:46 | PN ---
Date/Time of Note Date/Time of Note DATE: 11/26/16 TIME: 17:44 OB Subjective Subjective Subjective Post day 2 Afebrile vital signs are stable abdomen soft incision inspected seemed healing well, bowel sounds present no bowel movement ,stool softener and enema recommended ambulation encouraged JOSELUIS WESTON MD Nov 26, 2016 17:46
[2016-11-26] MEDS ORDERED: NA PHOSPHATE/BIPHOS 133 ML ENEMA PR ONE (21:00)
[2016-11-26] MEDS ORDERED: LABETALOL HCL 20MG INJ IV ONE (23:32)
[2016-11-27] VITALS (22 sets, daily range): BP systolic 93–182; BP diastolic 55–108; PULSE 61–98; RESP 18–20
[2016-11-27] MEDS ORDERED: LABETALOL HCL 20MG INJ IV ONE ×3 (00:30→02:30)
[2016-11-27] MEDS: IBUPROFEN 600 MG TAB PO PRN ×3 (00:42→21:43)
[2016-11-27] MEDS: LACTATED RINGER'S 1,000 ML IV SCH ×6 (01:18→21:56)
[2016-11-27] MEDS ORDERED: NIFEdipine 10 MG CAP PO ONE (03:30)
[2016-11-27] MEDS: SENNA TAB PO SCH (08:37)
[2016-11-27] MEDS: MULTIVIT/MIN/FOLATE/IRON/PREN TAB PO SCH (08:37)
[2016-11-27] MEDS: OXYCODONE/ACETAMINOPHEN (5/325) TAB PO PRN ×3 (08:37→21:43)
[2016-11-27] MEDS: LABETALOL 200 MG TAB PO SCH ×2 (08:38→21:00)
[2016-11-27] MEDS ORDERED: MAGNESIUM SULFATE 2 GM/50 ML 50 ML IVPB ONE (09:30)
[2016-11-27] MEDS: MAGNESIUM SULFATE 20 GM/500 ML 500 ML IV SCH ×2 (09:43→19:03)
[2016-11-27] MEDS: NIFEdipine (XL) 30 MG TAB PO SCH (10:12)
[2016-11-27] MEDS: ONDANSETRON 4 MG INJ IV PRN (10:16)
--- NOTE | 2016-11-27 10:45 | PN ---
Date/Time of Note Date/Time of Note DATE: 11/27/16 TIME: 10:39 OB Subjective Subjective Subjective Day 2 post for PIH complaining of headache her blood pressure earlier around 4:00 AM was 177/105 patient received labetalol IV blood pressure went down to 110/62 since patient has neurological symptoms she was placed on magnesium sulfate for seizure prevention, currently on labetalol 200 mg twice daily, 24 hours urine collection for protein and creatinine clearance ordered' we will continue close observation. JOSELUIS WESTON MD Nov 27, 2016 10:45
[2016-11-27] MEDS ORDERED: LABETALOL HCL 20MG INJ IV PRN (12:00)
[2016-11-28] VITALS (30 sets, daily range): BP systolic 96–155; BP diastolic 51–106; PULSE 66–97; RESP 19–22
[2016-11-28] MEDS: LACTATED RINGER'S 1,000 ML IV SCH ×6 (01:18→17:17)
[2016-11-28] MEDS: MAGNESIUM SULFATE 20 GM/500 ML 500 ML IV SCH ×2 (05:10→22:02)
[2016-11-28] MEDS: IBUPROFEN 600 MG TAB PO PRN ×2 (05:32→14:07)
[2016-11-28] MEDS: OXYCODONE/ACETAMINOPHEN (5/325) TAB PO PRN (05:33)
[2016-11-28 08:04] LABS: ALBUMIN 2.7 g/dl (3.3-4.9); ALBUMIN/GLOBULIN RATIO 1.08; BILIRUBIN,INDIRECT 0.2 mg/dl (0-1.1); BILIRUBIN,TOTAL 0.2 mg/dl (0.2-1.3); CREATININE 0.64 mg/dl (0.44-1.00); POTASSIUM 3.8 mmol/L (3.5-5.1); TOTAL PROTEIN 5.2 g/dl (6.1-8.1)
[2016-11-28 08:15] LABS: CALCIUM 5.8 mg/dl (8.4-10.2)
[2016-11-28] MEDS: NIFEdipine (XL) 30 MG TAB PO SCH ×2 (09:00→09:50)
[2016-11-28] MEDS: LABETALOL 200 MG TAB PO SCH ×3 (09:12→22:04)
[2016-11-28] MEDS: MULTIVIT/MIN/FOLATE/IRON/PREN TAB PO SCH (09:12)
[2016-11-28] MEDS: SENNA TAB PO SCH (09:12)
[2016-11-28] MEDS: NITROGLYCERIN (SL) 0.4 MG TAB SL PRN ×3 (10:08→23:44)
[2016-11-28 11:39] LABS: COLLECTION PERIOD 24 hrs
[2016-11-28] MEDS ORDERED: FAMOTIDINE 20 MG TAB PO SCH (14:45)
--- NOTE | 2016-11-28 17:37 | CONS ---
DATE OF ADMISSION: 11/23/2016 DATE OF CONSULTATION: 11/28/2016 TYPE OF CONSULTATION: Cardiology. REFERRING PHYSICIAN: Bonny Olmedo MD. REASON FOR EVALUATION: Chest pain. HISTORY OF PRESENT ILLNESS: Ms. Zapata is a 26-year-old woman who has a history of recent , status post section, history of recent delivery, history of gastroesophageal reflux diseas e, who comes to the hospital now. She had a and the baby was delivered and she is reporti ng chest pain since. Patient has some nonspecific ST changes on EKG; she did not rule in for acute ischemia. She said that she has GERD and her symptom presentation was consistent with GERD, however , for now we will continue to observe the patient. The patient did have evaluation with Dr. Faith in 2009, at which time showed a fairly normal echo. We will repeat an echo now and follow expectan tly. Apparently during last , the patient also had some reports of chest pain, fairly sam lar to this one and at that time, the workup was negative. For now, conservative therapy is expecte d to rule the patient out, to obtain a 2-D echo and follow expectantly. PAST MEDICAL HISTORY: 1. Prior episodes of chest pain. 2. History of recent . 3. History of gastroesophageal reflux disease. ALLERGIES: NO KNOWN DRUG ALLERGIES. SOCIAL HISTORY: The patient does not smoke, does not drink, does not use drugs. FAMILY HISTORY: Negative for sudden cardiac , premature coronary artery disease. REVIEW OF SYSTEMS: CONSTITUTIONAL: No fevers, no chills received. HEENT: No changes in vision or hearing. CARDIAC: Chest pain reported now. RESPIRATORY: No shortness of breath. ____. GASTROINTESTINAL: No nausea, vomiting. GENITOURINARY: No dysuria. ____. PSYCHIATRIC: Possible history of anxiety. PHYSICAL EXAMINATION: VITAL SIGNS: Temperature is 97.7, heart rate is 97, blood pressure is 103/70. GENERAL: She is a thin woman in no acute distress, alert and oriented x3, aware of her condition. HEAD: Normocephalic, atraumatic. Eyes anicteric. NECK: Supple. JVD 6-7 cm. There is no lymphadenopathy. HEART: Regular with soft holosystolic murmur at the apex and physiologic. LUNGS: Clear to auscultation. ABDOMEN: Distended, bowel sounds are present. ____. EXTREMITIES: Show no clubbing, cyanosis, or edema. LABORATORY DATA: Sodium 131, potassium 3.8, creatinine 0.6, magnesium 11 and ____ 6.0. Troponin is negative at 0.012. INR is 0.8. White blood cell count is 15.9, hemoglobin 11.8, platelets 211. ASSESSMENT AND PLAN: 1. Chest pain, fairly atypical in presentation will follow up with a 2-D echo to establish ejection fraction. The patient will also be ruled out for acute myocardial infarctions. 2. GERD, will advise PPI therapy as indicated. 3. Status post recent delivery. Continue treatment per ID team. 4. Anemia of , most likely continue ____. Will defer to primary team for evaluation and management. I would like to thank Dr. Olmedo for referring this patient for my evaluation. Dictated By: DAISY HILL MD ML/NTS Conf#: [id number] DID#: [id number]
--- NOTE | 2016-11-28 18:19 | QN ---
Documentation Comment post op c.sectio preeclampsia chest pains improved vss CDi a/p post op continue care ALICE HALL MD Nov 28, 2016 18:19
[2016-11-28] MEDS: PANTOPRAZOLE (EC) 40 MG TAB PO SCH (18:40)
--- NOTE | 2016-11-28 23:56 | CONS ---
DATE OF ADMISSION: 11/23/2016 DATE OF CONSULTATION: REASON FOR CONSULTATION: Chest pain. HISTORY OF PRESENT ILLNESS: The patient is a 26-year-old female with no significant past medical hi story who is admitted to the hospital and is now status post . Earlier this morning, she complained of chest pain. An EKG was done, and the ____ readout says T-wave inversion, and as such, a consult was placed for evaluation. She said chest pain is located in the mid chest and in the ep igastric area, described as a burning sensation. She also reported acid reflux type of symptoms. N o associated nausea, vomiting, shortness of breath or palpitations. The patient actually has alread y been seen and evaluated by Dr. Bowser from Cardiology. Her first troponin far has been negative. REVIEW OF SYSTEMS: Negative except as in HPI. PAST MEDICAL HISTORY: As per HPI. PAST SURGICAL HISTORY: . SOCIAL HISTORY: Denied history of tobacco, alcohol, illicit drug use. FAMILY HISTORY: Denied a history of heart disease, sudden or stroke in the family. ALLERGIES: NO KNOWN DRUG ALLERGY. HOME MEDICATIONS: multivitamin. PHYSICAL EXAMINATION: VITAL SIGNS: Stable. GENERAL: The patient lying in bed. She looks comfortable, answering questions appropriately and ab le to speak in full sentences. HEENT: No obvious head deformity. Pupils reactive to light. Extraocular muscles intact. CARDIOVASCULAR: Regular rate and rhythm. No extra sounds. LUNGS: Clear. ABDOMEN: Soft. site is covered. EXTREMITIES: No edema. NEUROLOGIC: No focal deficit. LABORATORY: First troponin is negative. IMPRESSION: 1. Chest pain, likely gastric in origin/acid reflux. 2. Status post section. PLAN: The patient's symptoms seem noncardiac in origin. She will need to be placed on a PPI. Her first troponin is negative, but we will trend her troponin. Will obtain a 2D echo. She has already been seen by Dr. Bowser and appreciate his input. While I was dictating this, I just realized that patient's insurance actually is [employer], and as such, starting tomorrow she needs to be followed by a doctor who is affiliated with [facility]. 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 Further workup and management per clinical course. Dictated By: LUCY GARZA/AZAM Conf#: [id number] DID#: [id number]
[2016-11-29] VITALS (19 sets, daily range): BP systolic 125–162; BP diastolic 77–101; PULSE 64–95; RESP 18–20
[2016-11-29] MEDS: NITROGLYCERIN (SL) 0.4 MG TAB SL PRN ×2 (00:26→07:45)
[2016-11-29] MEDS: PANTOPRAZOLE (EC) 40 MG TAB PO SCH ×2 (05:12→17:42)
[2016-11-29] MEDS: MULTIVIT/MIN/FOLATE/IRON/PREN TAB PO SCH (07:57)
--- NOTE | 2016-11-29 07:57 | CONS ---
Date/Time of Note Date/Time of Note DATE: 11/29/16 TIME: 07:55 Assessment/Plan Assessment/Plan Additional Assessment/Plan 1. Chest pain, fairly atypical in presentation will follow up with a 2-D echo to establish ejection fraction. The patient will also be ruled out for acute myocardial infarctions. Still with CP - r/O NV - will review ECHO when available. 2. GERD, will advise PPI therapy as indicated. 3. Status post recent delivery. Continue treatment per ID team. 4. Anemia of , most likely. Will defer to primary team for evaluation and management. 5. HTN - on high side - Rx with meds now. Consultation Date/Type/Reason Admit Date/Time Nov 23, 2016 at 23:00 Initial Consult Date 24 HR Interval Summary Free Text/Dictation Pt still with massimo dyscomfort - atypical, burning like - con't PPI - hans review ECHO today -BP Rx. ROS: No fever, no chills, no nausea, no vomiting, no diarrhea/constipation No recent weight changes + chest pain, no PND, no orthopnea, + burning No dizziness, blurred vision No thirst, no heat or cold intolerance Exam/Review of Systems Vital Signs Vitals Vital Signs Date Time Temp Pulse Resp B/P Pulse Ox O2 Delivery O2 Flow Rate FiO2 11/29/16 07:50 66 162/101 11/29/16 03:58 98.3 20 96 11/28/16 22:00 Room Air 11/26/16 04:45 21 Intake and Output 11/28/16 11/28/16 11/29/16 15:00 23:00 07:00 Intake Total 875 ml 1460 ml Output Total 1500 ml 1500 ml Balance -625 ml -40 ml Exam General: WN/WD/NAD, AOx 3 HEENT: Unicetric/atraumatic/EOMI (follow commands) NECK: JVD elevated, no thyromegaly Lymph: no lymphadenopathy HEART: regular with no S3, II/ systolic murmur at apex LUNGS: Coarse sounds ABD: soft, NT, ND, +BS, post : Intact Neuro: non focal SKIN: chronic changes EXT: trace edema Results Result Diagram: 11/26/16 0647 11/28/16 0630 Results 24 hrs Laboratory Tests Test 11/28/16 10:28 11/28/16 10:45 11/28/16 12:01 11/28/16 16:00 Troponin I < 0.012 0.040 Urine Collection Duration 24 Urine Total Volume (Protein) 6400 Urine Total Protein 24 Hour > 600.0 H Magnesium Level 6.0 *H Test 11/28/16 18:17 11/29/16 00:45 Magnesium Level 5.3 *H 5.0 H Medications Medications Current Medications Prenat Multivit/ [place]/Iron/Folic Ac ( S) 1 tab DAILY PO Last administered on 11/28/16 09:12; Admin Dose 1 TAB; Start 11/24/16 at 09:00 Senna (Senokot) 1 tab DAILY PO Last administered on 11/28/16 09:12; Admin Dose 1 TAB; Start 11/24/16 at 09:00 Al Hydrox/Mg Hydrox/Simethicone (Mag-Al Plus) 30 ml Q6H PRN PO GASTROINTESTINAL UPSET Last administered on 11/24/16 20:08; Admin Dose 30 ML; Start 11/23/16 at 23:00 Ephedrine Sulfate 5 mg [id number] PRN IV BLOOD PRESSURE SUPPORT; Start 11/25/16 at 00:00 Oxycodone/ Acetaminophen (Percocet (5/ 325)) 1 tab Q4H PRN PO PAIN LEVEL 4-6 Last administered on 11/28/16 05:33; Admin Dose 1 TAB; Start 11/26/16 at 00:00 Oxycodone/ Acetaminophen (Percocet (5/ 325)) 2 tab Q4H PRN PO PAIN LEVEL 7-10 Last administered on 11/26/16 22:34; Admin Dose 2 TAB; Start 11/26/16 at 00:00 Simethicone 160 mg 160 mg Q8H PRN PO DISTENSION/GAS/BLOATING Last administered on 11/27/16 09:00; Admin Dose 160 MG; Start 11/25/16 at 01:30 Oxytocin/Lactated Ringer's 500 ml @ 0 mls/hr ONCE PRN IV For Hemorrhage Management Last administered on 11/25/16 12:05; Admin Dose 0 MLS/HR; Start at 01:30 Methylergonovine Maleate (Methergine) 0.2 mg ONCE PRN IM VAGINAL BLEEDING; Start 11/25/16 at 01:30 Carboprost Tromethamine (Hemabate) 250 mcg ONCE PRN IM VAGINAL BLEEDING; Start 11/25/16 at 01:30 Misoprostol (Cytotec) 1,000 mcg ONCE PRN CA VAGINAL BLEEDING; Start 11/25/16 at 01:30 Acetaminophen (Tylenol Tab) 650 mg Q6H PRN PO PAIN AND OR ELEVATED TEMP Last administered on 11/29/16 05:12; Admin Dose 650 MG; Start 11/25/16 at 01:30 Bisacodyl (Dulcolax Supp) 10 mg ONCE PRN [place] constipation; Start 11/25/16 at 01: 30 Senna/Docusate Sodium (Senokot-S) 1 tab BID PRN PO CONSTIPATION; Start at 01:30 Magnesium Hydroxide (Milk Of Mag) 30 ml BID PRN PO CONSTIPATION; Start at 01:30 Ondansetron HCl (Zofran Inj) 4 mg Q6H PRN IV NAUSEA AND/OR VOMITING; Start at 01:30 Nifedipine 30 mg 30 mg DAILY PO Last administered on 11/27/16 10:12; Admin Dose 30 MG; Start 11/27/16 at 09:30 Magnesium Sulfate (Magnesium Sulfate 20 Gm/500 ml) 500 ml @ 25 mls/hr Q20H IV Last administered on 11/28/16 22:02; Admin Dose 25 MLS/HR; Start 11/27/16 at 09 :30 Labetalol HCl (Labetalol) 20 mg ONCE PRN IV ELEVATED SYSTOLIC BP; Start at 12:00; Stop 11/30/16 at 11:59 Labetalol HCl (Normodyne) 200 mg TID PO Last administered on 11/28/16 22:04; Admin Dose 200 MG; Start 11/28/16 at 13:00 Nitroglycerin (Nitroglycerin (Sl Tab) 0.4 Mg) 1 tab Q5M PRN SL ANGINA Last administered on 11/29/16 00:26; Admin Dose 1 TAB; Start 11/28/16 at 10:00 Pantoprazole (Protonix Tab) 40 mg BID@,18 PO Last administered on 11/29/16 05:12; Admin Dose 40 MG; Start 11/28/16 at 18:00 DAISY HILL MD Nov 29, 2016 07:57
[2016-11-29] MEDS: SENNA TAB PO SCH (07:58)
[2016-11-29] MEDS: LABETALOL 200 MG TAB PO SCH ×3 (07:58→21:59)
[2016-11-29] MEDS: NIFEdipine (XL) 30 MG TAB PO SCH (07:58)
[2016-11-29] MEDS: MAGNESIUM SULFATE 20 GM/500 ML 500 ML IV SCH (17:34)
[2016-11-29] MEDS: AL HYDROX/MG HYDROX/SIMETH 30 ML CUP PO PRN (22:14)
[2016-11-30] VITALS (18 sets, daily range): BP systolic 87–150; BP diastolic 54–105; PULSE 72–113; RESP 20–21
[2016-11-30] MEDS: PANTOPRAZOLE (EC) 40 MG TAB PO SCH ×2 (06:22→18:18)
[2016-11-30] MEDS: MAGNESIUM SULFATE 20 GM/500 ML 500 ML IV SCH ×2 (06:29→13:34)
[2016-11-30] MEDS: MULTIVIT/MIN/FOLATE/IRON/PREN TAB PO SCH (08:56)
[2016-11-30] MEDS: NIFEdipine (XL) 30 MG TAB PO SCH (08:56)
[2016-11-30] MEDS: SENNA TAB PO SCH (08:57)
[2016-11-30] MEDS: LABETALOL 200 MG TAB PO SCH ×3 (08:57→12:28)
[2016-11-30] MEDS ORDERED: SOD CHLORIDE 0.9% 250 ML IV ONE (11:30)
[2016-11-30] MEDS ORDERED: SOD CHLORIDE 0.9% 1,000 ML IV ONE ×2 (12:00→13:30)
--- NOTE | 2016-11-30 12:59 | CONS ---
Date/Time of Note Date/Time of Note DATE: 11/30/16 TIME: 12:54 Assessment/Plan Assessment/Plan Chief Complaint/Hosp Course IMP: 1. Chest pain-negTIVE TROP X 3/RESOLVED CHEST PAIN 2. Hypertension-now on lower side with some medications being held 3. s/p c section delivery 4. GERD Recc: -Tele -serial ecg's -Will f/u echo -Continue procardia and will decrease dose of BB to allow patient to better tolerate Problems: Consultation Date/Type/Reason Admit Date/Time Nov 23, 2016 at 23:00 Initial Consult Date 11/28/2016 Type of Consultation: cardiology Reason for Consultation chest pain Referring Provider: MERA KEARNS Exam/Review of Systems Vital Signs Vitals Vital Signs Date Time Temp Pulse Resp B/P Pulse Ox O2 Delivery O2 Flow Rate FiO2 11/30/16 12:30 20 95/60 Room Air 11/30/16 12:08 113 11/30/16 11:42 98.7 98 Intake and Output 11/29/16 11/29/16 11/30/16 15:00 23:00 07:00 Intake Total 970 ml 980 ml Output Total 100 ml 900 ml 1350 ml Balance -100 ml 70 ml -370 ml Exam Review of Systems: CONSTITUTIONAL: No fevers, chills. PULMONARY: No sob CARDIOVASCULAR: No chest pain/palpitations GASTROINTESTINAL: No nausea/vomiting. GENITOURINARY: No hematuria/dysuria. MUSCULOSKELETAL: No myagias/arthalgias. PSYCHIATRIC: The patient denies depression. NEUROLOGIC: No weakness Constitutional: alert, oriented Psych: no complaints Head: normocephalic ENMT: mucosa pink and moist Neck: jvd (9 cm water), supple Respiratory: diminished breath sounds Cardiovascular: regular rate and rhythm Gastrointestinal: non-tender, soft Musculoskeletal: muscle tone (normal) Extremities: edema (none) Neurological: other (No focal deficits) Results Result Diagram: 11/26/16 0647 11/28/16 0630 Results 24 hrs Laboratory Tests Test 11/29/16 18:35 11/30/16 00:33 11/30/16 06:23 Magnesium Level 4.3 H 4.0 H 4.8 H Medications Medications Current Medications Prenat Multivit/ [place]/Iron/Folic Ac ( S) 1 tab DAILY PO Last administered on 11/30/16t 08:56; Admin Dose 1 TAB; Start 11/24/16 at 09:00 Senna (Senokot) 1 tab DAILY PO Last administered on 11/30/16 08:57; Admin Dose 1 TAB; Start 11/24/16 at 09:00 Al Hydrox/Mg Hydrox/Simethicone (Mag-Al Plus) 30 ml Q6H PRN PO GASTROINTESTINAL UPSET Last administered on 11/29/16 22:14; Admin Dose 30 ML; Start 11/23/16 at 23:00 Oxycodone/ Acetaminophen (Percocet (5/ 325)) 1 tab Q4H PRN PO PAIN LEVEL 4-6 Last administered on 11/28/16 05:33; Admin Dose 1 TAB; Start 11/26/16 at 00:00 Oxycodone/ Acetaminophen (Percocet (5/ 325)) 2 tab Q4H PRN PO PAIN LEVEL 7-10 Last administered on 11/26/16 22:34; Admin Dose 2 TAB; Start 11/26/16 at 00:00 Simethicone (Mylicon) 160 mg Q8H PRN PO DISTENSION/GAS/BLOATING Last administered on 11/27/16 09:00; Admin Dose 160 MG; Start 11/25/16 at 01:30 Methylergonovine Maleate (Methergine) 0.2 mg ONCE PRN IM VAGINAL BLEEDING; Start 11/25/16 at 01:30 Carboprost Tromethamine (Hemabate) 250 mcg ONCE PRN IM VAGINAL BLEEDING; Start 11/25/16 at 01:30 Misoprostol (Cytotec) 1,000 mcg ONCE PRN NE VAGINAL BLEEDING; Start 11/25/16 at 01:30 Acetaminophen (Tylenol Tab) 650 mg Q6H PRN PO PAIN AND OR ELEVATED TEMP Last administered on 11/29/16 05:12; Admin Dose 650 MG; Start 11/25/16 at 01:30 Bisacodyl (Dulcolax Supp) 10 mg ONCE PRN [place] constipation; Start 11/25/16 at 01: 30 Senna/Docusate Sodium (Senokot-S) 1 tab BID PRN PO CONSTIPATION Last administered on 11/29/16 07:58; Admin Dose 1 TAB; Start 11/25/16 at 01:30 Magnesium Hydroxide (Milk Of Mag) 30 ml BID PRN PO CONSTIPATION; Start at 01:30 Ondansetron HCl (Zofran Inj) 4 mg Q6H PRN IV NAUSEA AND/OR VOMITING Last administered on 11/29/16 09:18; Admin Dose 4 MG; Start 11/25/16 at 01:30 Nifedipine 30 mg 30 mg DAILY PO Last administered on 11/30/16 08:56; Admin Dose 30 MG; Start 11/27/16 at 09:30 Magnesium Sulfate (Magnesium Sulfate 20 Gm/500 ml) 500 ml @ 25 mls/hr Q20H IV Last administered on 11/30/16 06:29; Admin Dose 25 MLS/HR; Start 11/27/16 at 09 :30 Labetalol HCl (Normodyne) 200 mg TID PO Last administered on 11/29/16 21:59; Admin Dose 200 MG; Start 11/28/16 at 13:00 Nitroglycerin (Nitroglycerin (Sl Tab) 0.4 Mg) 1 tab Q5M PRN SL ANGINA Last administered on 11/29/16 00:26; Admin Dose 1 TAB; Start 11/28/16 at 10:00 Pantoprazole 40 mg 40 mg BID@06,18 PO Last administered on 11/30/16 06:22; Admin Dose 40 MG; Start 11/28/16 at 18:00 Sodium Chloride (NS) 1,000 ml @ 1,000 mls/hr Q1H ONCE IV Last administered on 11/30/16 11:42; Admin Dose 1,000 MLS/HR; Start 11/30/16 at 12:00; Stop at 12:59 CHARLIE LEDBETTER Nov 30, 2016 12:58
--- NOTE | 2016-11-30 13:05 | CONS ---
Date/Time of Note Date/Time of Note DATE: 11/30/16 TIME: 13:03 Assessment/Plan Assessment/Plan Additional Assessment/Plan 26 yo F sp c section 6.22 now with preeclampsia. Hospitalist service consulted for chest pain, of note pt with hypotension this AM. #hypotension: etio unclear, suspect iatrogenic from BP meds hold procardia, cont bb given PreEclampsia bolus fluids CT chest to eval for BP hospitalist service will cont to follow Consultation Date/Type/Reason Admit Date/Time Nov 23, 2016 at 23:00 Initial Consult Date Type of Consultation: hospitalist 24 HR Interval Summary Free Text/Dictation Contacted by RN that pt hypotensive and with c/o chest pain at 1130am. I presented to pt's bedside, pt reported central chest discomfort . SBP at that time in the 80s, HR low 100s. Exam/Review of Systems Vital Signs Vitals Vital Signs Date Time Temp Pulse Resp B/P Pulse Ox O2 Delivery O2 Flow Rate FiO2 11/30/16 12:30 20 95/60 Room Air 11/30/16 12:08 113 11/30/16 11:42 98.7 98 Intake and Output 11/29/16 11/29/16 11/30/16 15:00 23:00 07:00 Intake Total 970 ml 980 ml Output Total 100 ml 900 ml 1350 ml Balance -100 ml 70 ml -370 ml Exam anxious, laying in bed tachy no mrg lungs clear abd soft no le edema labs reviewed Results Result Diagram: 11/26/16 0647 11/28/16 0630 Results 24 hrs Laboratory Tests Test 11/29/16 18:35 11/30/16 00:33 11/30/16 06:23 Magnesium Level 4.3 H 4.0 H 4.8 H Medications Medications Current Medications Prenat Multivit/ [place]/Iron/Folic Ac ( S) 1 tab DAILY PO Last administered on 11/30/16 08:56; Admin Dose 1 TAB; Start 11/24/16 at 09:00 Senna (Senokot) 1 tab DAILY PO Last administered on 11/30/16 08:57; Admin Dose 1 TAB; Start 11/24/16 at 09:00 Al Hydrox/Mg Hydrox/Simethicone (Mag-Al Plus) 30 ml Q6H PRN PO GASTROINTESTINAL UPSET Last administered on 11/29/16 22:14; Admin Dose 30 ML; Start 11/23/16 at 23:00 Oxycodone/ Acetaminophen (Percocet (5/ 325)) 1 tab Q4H PRN PO PAIN LEVEL 4-6 Last administered on 11/28/16 05:33; Admin Dose 1 TAB; Start 11/26/16 at 00:00 Oxycodone/ Acetaminophen (Percocet (5/ 325)) 2 tab Q4H PRN PO PAIN LEVEL 7-10 Last administered on 11/26/16 22:34; Admin Dose 2 TAB; Start 11/26/16 at 00:00 Simethicone (Mylicon) 160 mg Q8H PRN PO DISTENSION/GAS/BLOATING Last administered on 11/27/16 09:00; Admin Dose 160 MG; Start 11/25/16 at 01:30 Methylergonovine Maleate (Methergine) 0.2 mg ONCE PRN IM VAGINAL BLEEDING; Start 11/25/16 at 01:30 Carboprost Tromethamine (Hemabate) 250 mcg ONCE PRN IM VAGINAL BLEEDING; Start 11/25/16 at 01:30 Misoprostol (Cytotec) 1,000 mcg ONCE PRN ND VAGINAL BLEEDING; Start 11/25/16 at 01:30 Acetaminophen (Tylenol Tab) 650 mg Q6H PRN PO PAIN AND OR ELEVATED TEMP Last administered on 11/29/16 05:12; Admin Dose 650 MG; Start 11/25/16 at 01:30 Bisacodyl (Dulcolax Supp) 10 mg ONCE PRN ND constipation; Start 11/25/16 at 01: 30 Senna/Docusate Sodium (Senokot-S) 1 tab BID PRN PO CONSTIPATION Last administered on 11/29/16 07:58; Admin Dose 1 TAB; Start 11/25/16 at 01:30 Magnesium Hydroxide (Milk Of Mag) 30 ml BID PRN PO CONSTIPATION; Start at 01:30 Ondansetron HCl (Zofran Inj) 4 mg Q6H PRN IV NAUSEA AND/OR VOMITING Last administered on 11/29/16 09:18; Admin Dose 4 MG; Start 11/25/16 at 01:30 Nifedipine 30 mg 30 mg DAILY PO Last administered on 11/30/16 08:56; Admin Dose 30 MG; Start 11/27/16 at 09:30 Magnesium Sulfate (Magnesium Sulfate 20 Gm/500 ml) 500 ml @ 25 mls/hr Q20H IV Last administered on 11/30/16 06:29; Admin Dose 25 MLS/HR; Start 11/27/16 at 09 :30 Nitroglycerin (Nitroglycerin (Sl Tab) 0.4 Mg) 1 tab Q5M PRN SL ANGINA Last administered on 11/29/16 00:26; Admin Dose 1 TAB; Start 11/28/16 at 10:00 Pantoprazole (Protonix Tab) 40 mg BID@06,18 PO Last administered on 11/30/16 06:22; Admin Dose 40 MG; Start 11/28/16 at 18:00 Labetalol HCl (Normodyne) 200 mg BID PO ; Start 11/30/16 at 21:00 ROXY ALVARENGA MD Nov 30, 2016 13:05
--- NOTE | 2016-11-30 17:46 | RADRPT ---
Echocardiogram Report Patient Name: JORGE STRICKLAND Gender: Female Date: 1990 Study Date: 29-Nov-2016 Microwave Radio Technician: Michelle Montoya RDCS Location: [id number] Ref. Physician: LUCY BARAJAS Quality: Good Procedures: Transthoracic echocardiogram with complete 2D, M-Mode, and doppler examination. Indications: Chest Pain. 2D/M Mode Doppler Measurement Value Normal Ranges Measurement Value Normal Ranges LVIDd 2D 4.4 3.5 - 5.6 cm AV Peak [place] 1.6 m/sec LVIDs 2D 2.5 2.1 - 4.1 cm AV Peak PG 10.0 mmHg FS 2D 41.9 % LVOT Peak [place] 1.0 m/sec LVPWd 2D 0.8 0.6 - 1.1 cm LVOT Peak PG 4.0 mmHg IVSd 2D 0.9 0.6 - 1.1 cm MV E Peak [place] 1.0 m/sec IVS/LVPW 2D 1.1 MV A Peak [place] 0.6 m/sec AoR Diam 2D 2.6 2.0 - 3.7 cm MV E/A 1.6 LA/Ao 2D 1 0 - 1 MV Decel Time 197 msec EDV 2D 83.5 cm3 MV E/A 1.6 ESV 2D 16.4 cm3 TR Peak [place] 2.6 m/sec LA Dimen 2D 3.1 2.3 - 4.0 cm TR Peak PG 27.0 mmHg RVSP 30.0 mmHg Findings Left Ventricle: Normal left ventricular systolic function. Normal left ventricular cavity size. Normal left ventricular wall thickness. Ejection fraction is visually estimated at 60 %. Tissue Doppler/Mitral Doppler indices are within normal limits. Right Ventricle: Normal right ventricular size. Normal right ventricular systolic function. Left Atrium: The left atrium is normal in size. Right Atrium: The right atrium is normal in size. Mitral Valve: Normal appearance and function of the mitral valve with trace physiologic regurgitation. Aortic Valve: Normal appearance of the aortic valve. No significant aortic stenosis or insufficiency. Tricuspid Valve: Normal appearance of the tricuspid valve. Estimated peak PA systolic pressure 30 mmHg. There is trace tricuspid regurgitation. Pulmonic Valve: Normal pulmonic valve appearance. Pericardium: Normal pericardium with no significant pericardial effusion. Aorta: Normal aortic root. IVC: Normal size and normal respiratory collapse consistent with normal right atrial pressure. Conclusions 1.Normal left ventricular systolic function. Normal left ventricular cavity size. Normal left ventricular wall thickness. Ejection fraction is visually estimated at 60 %. Tissue Doppler/Mitral Doppler indices are within normal limits. 2.Normal appearance and function of the mitral valve with trace physiologic regurgitation. 3.Normal appearance of the tricuspid valve. Estimated peak PA systolic pressure 30 mmHg. There is trace tricuspid regurgitation. Electronically Signed By: Omari Faith 30-Nov-2016 17:44:39 -0700 Patient Name: JORGE STRICKLAND Study Date: 29-Nov-2016 [id number]
[2016-11-30] MEDS ORDERED: IOHEXOL 0 ML ONE (20:03)
[2016-11-30] MEDS ORDERED: SOD CHLORIDE 0.9% 100 ML ONE (20:03)
[2016-11-30] MEDS ORDERED: IOHEXOL 350MG/ML 50 ML BTL ONE (20:04)
[2016-11-30] MEDS ORDERED: IODIXANOL LOCM 100 ML BTL ONE (20:04)
[2016-11-30] MEDS ORDERED: IODIXANOL LOCM 50 ML BTL ONE (20:04)
[2016-11-30] MEDS: LABETALOL 100 MG TAB PO SCH (20:32)
[2016-11-30] MEDS ORDERED: LABETALOL 200 MG TAB PO SCH (21:00)
[2016-12-01] VITALS (14 sets, daily range): BP systolic 118–155; BP diastolic 78–109; PULSE 69–104; RESP 17–20
--- NOTE | 2016-12-01 00:51 | RADRPT ---
PROCEDURE: CT angiogram chest. CLINICAL INDICATION: Shortness of breath. TECHNIQUE: CT angiogram of the chest was performed utilizing axial images with reconstructions in sagittal and coronal planes following the intravenous administration of 100 cc Visipaque 320 contras t. The administered radiation dose is CTDI 5.2 mGy, DLP 212 mGy-cm. COMPARISON: No pertinent prior examinations are submitted for comparison. FINDINGS: Pulmonary angiogram: The pulmonary arteries are adequately opacified to the level of the segmental pulmonary artery branches. There is moderate respiratory motion artifact which limits evaluation of the lobar and segmental pulmonary artery branches.. There is no evidence of pulmonary embolus. Aortogram: There is no evidence of aortic dissection or aneurysm. Major branches of the aorta are patent. Chest: The lungs are clear. No pleural or pericardial effusions are seen. The tracheobronchial tree is un remarkable. The heart is normal in size. No pericardial effusion is seen. There is no evidence of mediastinal or hilar adenopathy. Visualized Upper abdomen: Unremarkable. Osseous structures: Unremarkable. IMPRESSION: No evidence of pulmonary embolus. There are evaluation of the lobar and segmental pulmonary artery b ranches due to respiratory motion artifact. RPTAT: HIKT .Pavan Olmedo MD, MD Date Time Electronically viewed and signed by .Pavan Olmedo MD, on 12/01/2016 00:51 .T/
[2016-12-01] MEDS: MAGNESIUM SULFATE 20 GM/500 ML 500 ML IV SCH ×2 (04:13→13:30)
[2016-12-01] MEDS: PANTOPRAZOLE (EC) 40 MG TAB PO SCH ×2 (06:31→18:00)
[2016-12-01] MEDS: SENNA TAB PO SCH (10:09)
[2016-12-01] MEDS: MULTIVIT/MIN/FOLATE/IRON/PREN TAB PO SCH (10:09)
[2016-12-01] MEDS: LABETALOL 100 MG TAB PO SCH (10:09)
--- NOTE | 2016-12-01 10:31 | RADRPT ---
Vent Rate: 105 bpm RR Interval: [address] Interval: 124 msec QRS Duration: 66 msec QT Interval: 342 msec QTC Interval: 452 msec P-R-T [place]: 72 - 83 - 74 degrees Sinus tachycardia Septal infarct , age undetermined Abnormal ECG Electronically Signed By: Rodrigo Bonilla [id number]
[2016-12-01 11:19] LABS: ALBUMIN 3.2 g/dl (3.3-4.9); BILIRUBIN,INDIRECT 0.1 mg/dl (0-1.1); BILIRUBIN,TOTAL 0.1 mg/dl (0.2-1.3); TOTAL PROTEIN 5.9 g/dl (6.1-8.1)
--- NOTE | 2016-12-01 12:44 | CONS ---
Date/Time of Note Date/Time of Note DATE: 12/01/16 TIME: 12:44 Assessment/Plan Assessment/Plan Additional Assessment/Plan 26 yo F sp c section 6.22 now with preeclampsia. Hospitalist service consulted for chest pain, of note pt with hypotension this 6.27, resolved with change in BP regimen. #hypotension: etio unclear, suspect iatrogenic from BP meds cont current BP regimen hospitalist service will cont to follow Consultation Date/Type/Reason Admit Date/Time Nov 23, 2016 at 23:00 Type of Consultation: hospitalist 24 HR Interval Summary Free Text/Dictation Pt states no more chest pain. I reviewed negative CTA result with patient Exam/Review of Systems Vital Signs Vitals Vital Signs Date Time Temp Pulse Resp B/P Pulse Ox O2 Delivery O2 Flow Rate FiO2 12/01/16 12:04 74 12/01/16 11:25 98.8 18 123/81 97 12/01/16 10:15 Room Air Intake and Output 11/30/16 11/30/16 12/01/16 15:00 23:00 07:00 Intake Total 1200 ml 2200 ml 1180 ml Output Total 3000 ml 2000 ml Balance 1200 ml -800 ml -820 ml Exam nad laying in bed no mrg lungs clear abd soft no rashes CT PE protocol neg for PE Results Result Diagram: 11/28/16 0630 Results 24 hrs Laboratory Tests Test 11/30/16 12:47 11/30/16 18:35 12/01/16 00:20 12/01/16 06:50 Magnesium Level 5.0 H 4.4 H 4.9 H 5.0 H Total Bilirubin 0.1 L Direct Bilirubin 0.00 Indirect Bilirubin 0.1 Aspartate Amino Transf (AST/SGOT) 28 Alanine Aminotransferase (ALT/SGPT) 43 Alkaline Phosphatase 101 Total Protein 5.9 L Albumin 3.2 L Medications Medications Current Medications Prenat Multivit/ [place]/Iron/Folic Ac ( S) 1 tab DAILY PO Last administered on 12/01/16 10:09; Admin Dose 1 TAB; Start 11/24/16 at 09:00 Senna (Senokot) 1 tab DAILY PO Last administered on 12/01/16 10:09; Admin Dose 1 TAB; Start 11/24/16 at 09:00 Al Hydrox/Mg Hydrox/Simethicone (Mag-Al Plus) 30 ml Q6H PRN PO GASTROINTESTINAL UPSET Last administered on 11/29/16 22:14; Admin Dose 30 ML; Start 11/23/16 at 23:00 Oxycodone/ Acetaminophen (Percocet (5/ 325)) 1 tab Q4H PRN PO PAIN LEVEL 4-6 Last administered on 11/28/16 05:33; Admin Dose 1 TAB; Start 11/26/16 at 00:00 Oxycodone/ Acetaminophen (Percocet (5/ 325)) 2 tab Q4H PRN PO PAIN LEVEL 7-10 Last administered on 11/26/16 22:34; Admin Dose 2 TAB; Start 11/26/16 at 00:00 Simethicone (Mylicon) 160 mg Q8H PRN PO DISTENSION/GAS/BLOATING Last administered on 11/27/16 09:00; Admin Dose 160 MG; Start 11/25/16 at 01:30 Methylergonovine Maleate (Methergine) 0.2 mg ONCE PRN IM VAGINAL BLEEDING; Start 11/25/16 at 01:30 Carboprost Tromethamine (Hemabate) 250 mcg ONCE PRN IM VAGINAL BLEEDING; Start 11/25/16 at 01:30 Misoprostol (Cytotec) 1,000 mcg ONCE PRN IN VAGINAL BLEEDING; Start 11/25/16 at 01:30 Acetaminophen (Tylenol Tab) 650 mg Q6H PRN PO PAIN AND OR ELEVATED TEMP Last administered on 11/29/16 05:12; Admin Dose 650 MG; Start 11/25/16 at 01:30 Bisacodyl (Dulcolax Supp) 10 mg ONCE PRN IN constipation; Start 11/25/16 at 01: 30 Senna/Docusate Sodium (Senokot-S) 1 tab BID PRN PO CONSTIPATION Last administered on 11/29/16 07:58; Admin Dose 1 TAB; Start 11/25/16 at 01:30 Magnesium Hydroxide (Milk Of Mag) 30 ml BID PRN PO CONSTIPATION; Start at 01:30 Ondansetron HCl 4 mg 4 mg Q6H PRN IV NAUSEA AND/OR VOMITING Last administered on 11/29/16 09:18; Admin Dose 4 MG; Start 11/25/16 at 01:30 Magnesium Sulfate (Magnesium Sulfate 20 Gm/500 ml) 500 ml @ 25 mls/hr Q20H IV Last administered on 12/01/16 04:13; Admin Dose 25 MLS/HR; Start 11/27/16 at 09 :30 Nitroglycerin (Nitroglycerin (Sl Tab) 0.4 Mg) 1 tab Q5M PRN SL ANGINA Last administered on 11/29/16 00:26; Admin Dose 1 TAB; Start 11/28/16 at 10:00 Pantoprazole (Protonix Tab) 40 mg BID@06,18 PO Last administered on 12/01/16 06:31; Admin Dose 40 MG; Start 11/28/16 at 18:00 Labetalol HCl (Normodyne) 100 mg BID PO Last administered on 12/01/16 10:09; Admin Dose 100 MG; Start 11/30/16 at 21:00 ROXY ALVARENGA MD Dec 01, 2016 12:44
--- NOTE | 2016-12-01 15:10 | CONS ---
Date/Time of Note Date/Time of Note DATE: 12/01/16 TIME: 15:05 Assessment/Plan Assessment/Plan Chief Complaint/Hosp Course IMP: 1. Chest pain-negTIVE TROP X 3/RESOLVED CHEST PAIN. Echo 11/30 NL EF/no sig valve abnl 2. Hypertension-now on lower side with some medications being held 3. s/p c section delivery 4. GERD 5. Abnl ecg-negative trop x 3/NL EF. NL variant for patient Recc: -Tele -serial ecg's -Procardia was d/c'd. Will thus make slight increase to labetelol to improve BP control -If no chest pain and BP stable then d/c planning Problems: Consultation Date/Type/Reason Admit Date/Time Nov 23, 2016 at 23:00 Initial Consult Date 11/28/2016 Type of Consultation: cardiology Reason for Consultation HTN/chest pain Referring Provider: JAY FORTE Exam/Review of Systems Vital Signs Vitals Vital Signs Date Time Temp Pulse Resp B/P Pulse Ox O2 Delivery O2 Flow Rate FiO2 12/01/16 12:04 74 12/01/16 11:25 98.8 18 123/81 97 12/01/16 10:15 Room Air Intake and Output 11/30/16 11/30/16 12/01/16 15:00 23:00 07:00 Intake Total 1200 ml 2200 ml 1180 ml Output Total 3000 ml 2000 ml Balance 1200 ml -800 ml -820 ml Exam Review of Systems: CONSTITUTIONAL: No fevers, chills. PULMONARY: No sob CARDIOVASCULAR: No chest pain/palpitations GASTROINTESTINAL: No nausea/vomiting. GENITOURINARY: No hematuria/dysuria. MUSCULOSKELETAL: No myagias/arthalgias. PSYCHIATRIC: The patient denies depression. NEUROLOGIC: No weakness Constitutional: alert, oriented Psych: no complaints Head: normocephalic ENMT: mucosa pink and moist Neck: jvd (8 cm water), supple Respiratory: diminished breath sounds (at bases/B) Cardiovascular: regular rate and rhythm Gastrointestinal: non-tender, soft Musculoskeletal: muscle tone (normal) Extremities: edema (none) Neurological: other (No focal deficits) Results Result Diagram: 11/28/16 0630 Results 24 hrs Laboratory Tests Test 11/30/16 18:35 12/01/16 00:20 12/01/16 06:50 12/01/16 12:15 Magnesium Level 4.4 H 4.9 H 5.0 H 5.0 H Total Bilirubin 0.1 L Direct Bilirubin 0.00 Indirect Bilirubin 0.1 Aspartate Amino Transf (AST/SGOT) 28 Alanine Aminotransferase (ALT/SGPT) 43 Alkaline Phosphatase 101 Total Protein 5.9 L Albumin 3.2 L Medications Medications Current Medications Prenat Multivit/ [place]/Iron/Folic Ac ( S) 1 tab DAILY PO Last administered on 12/01/16 10:09; Admin Dose 1 TAB; Start 11/24/16 at 09:00 Senna (Senokot) 1 tab DAILY PO Last administered on 12/01/16 10:09; Admin Dose 1 TAB; Start 11/24/16 at 09:00 Al Hydrox/Mg Hydrox/Simethicone (Mag-Al Plus) 30 ml Q6H PRN PO GASTROINTESTINAL UPSET Last administered on 11/29/16 22:14; Admin Dose 30 ML; Start 11/23/16 at 23:00 Oxycodone/ Acetaminophen (Percocet (5/ 325)) 1 tab Q4H PRN PO PAIN LEVEL 4-6 Last administered on 11/28/16 05:33; Admin Dose 1 TAB; Start 11/26/16 at 00:00 Oxycodone/ Acetaminophen (Percocet (5/ 325)) 2 tab Q4H PRN PO PAIN LEVEL 7-10 Last administered on 11/26/16 22:34; Admin Dose 2 TAB; Start 11/26/16 at 00:00 Simethicone (Mylicon) 160 mg Q8H PRN PO DISTENSION/GAS/BLOATING Last administered on 11/27/16 09:00; Admin Dose 160 MG; Start 11/25/16 at 01:30 Methylergonovine Maleate (Methergine) 0.2 mg ONCE PRN IM VAGINAL BLEEDING; Start 11/25/16 at 01:30 Carboprost Tromethamine (Hemabate) 250 mcg ONCE PRN IM VAGINAL BLEEDING; Start 11/25/16 at 01:30 Misoprostol (Cytotec) 1,000 mcg ONCE PRN CO VAGINAL BLEEDING; Start 11/25/16 at 01:30 Acetaminophen (Tylenol Tab) 650 mg Q6H PRN PO PAIN AND OR ELEVATED TEMP Last administered on 11/29/16 05:12; Admin Dose 650 MG; Start 11/25/16 at 01:30 Bisacodyl (Dulcolax Supp) 10 mg ONCE PRN CO constipation; Start 11/25/16 at 01: 30 Senna/Docusate Sodium (Senokot-S) 1 tab BID PRN PO CONSTIPATION Last administered on 11/29/16 07:58; Admin Dose 1 TAB; Start 11/25/16 at 01:30 Magnesium Hydroxide (Milk Of Mag) 30 ml BID PRN PO CONSTIPATION; Start at 01:30 Ondansetron HCl 4 mg 4 mg Q6H PRN IV NAUSEA AND/OR VOMITING Last administered on 11/29/16 09:18; Admin Dose 4 MG; Start 11/25/16 at 01:30 Magnesium Sulfate (Magnesium Sulfate 20 Gm/500 ml) 500 ml @ 25 mls/hr Q20H IV Last administered on 12/01/16 04:13; Admin Dose 25 MLS/HR; Start 11/27/16 at 09 :30 Nitroglycerin (Nitroglycerin (Sl Tab) 0.4 Mg) 1 tab Q5M PRN SL ANGINA Last administered on 11/29/16 00:26; Admin Dose 1 TAB; Start 11/28/16 at 10:00 Pantoprazole (Protonix Tab) 40 mg BID@06,18 PO Last administered on 12/01/16 06:31; Admin Dose 40 MG; Start 11/28/16 at 18:00 Labetalol HCl (Normodyne) 100 mg BID PO Last administered on 12/01/16 10:09; Admin Dose 100 MG; Start 11/30/16 at 21:00 CHARLIE LEDBETTER Dec 01, 2016 15:10
--- NOTE | 2016-12-01 20:39 | PN ---
Date/Time of Note Date/Time of Note DATE: 12/01/16 TIME: 20:09 OB Subjective Subjective Subjective Denies any headache, blurred vision or epigastric pain. Denies any dizziness, lightheadadness, SOB, CP , Complains of fatigue. Passed flatus. tolerated po diet well. urinated. vaginal bleeding minimal OB Objective Objective Objective GA: A&O, NAD Abdomen: Soft, appropriate tenderness in the section incision.no erythema,no bleeding from the incision. normal bowel sounds audible. Extremities: No calf tenderness, no click, no edema,. Lungs; CTA bilaterally CV: RRR Chemistry Test 11/29/16 00:45 11/29/16 07:20 11/29/16 12:00 11/29/16 18:35 Magnesium Level 5.0mg/dl (1.7-2.5) H 3.8mg/dl (1.7-2.5) H 3.5mg/dl (1.7-2.5) H 4.3mg/dl (1.7-2.5) H Test 11/30/16 00:33 11/30/16 06:23 11/30/16 12:47 11/30/16 18:35 Magnesium Level 4.0mg/dl (1.7-2.5) H 4.8mg/dl (1.7-2.5) H 5.0mg/dl (1.7-2.5) H 4.4mg/dl (1.7-2.5) H Test 12/01/16 00:20 12/01/16 06:50 12/01/16 12:15 12/01/16 18:55 Magnesium Level 4.9mg/dl (1.7-2.5) H 5.0mg/dl (1.7-2.5) H 5.0mg/dl (1.7-2.5) H 4.9mg/dl (1.7-2.5) H Total Bilirubin 0.1mg/dl (0.2-1.3) L Direct Bilirubin 0.00mg/dl (0.00-0.20) Indirect Bilirubin 0.1mg/dl (0-1.1) Aspartate Amino Transf (AST/SGOT) 28IU/L (15-46) Alanine Aminotransferase (ALT/SGPT) 43IU/L (13-69) Alkaline Phosphatase 101IU/L (42-121) Total Protein 5.9g/dl (6.1-8.1) L Albumin 3.2g/dl (3.3-4.9) L OB Assessment/Plan Other Assessment: S/p section POD #6 S/p Cesaran section for IUGR and PIH. Currently on magnesium, Blood pressure well controlled with labetalol 200 mg BID asymptomatic Doing well. Adequate UOP Fatigue. likely due to magnesium Stop magnesium Continue Labetalol Routine post op care JOSEPH UQINTERO MD Dec 01, 2016 20:17
[2016-12-01] MEDS: LABETALOL 200 MG TAB PO SCH (20:51)
[2016-12-02] VITALS: PULSE 76
[2016-12-02 03:36] VITALS: BP 115/76; RESP 17
[2016-12-02 04:00] VITALS: PULSE 72
[2016-12-02] MEDS: PANTOPRAZOLE (EC) 40 MG TAB PO SCH (05:43)
[2016-12-02 07:08] VITALS: BP 110/76; RESP 18
[2016-12-02 08:01] VITALS: PULSE 73
[2016-12-02] MEDS: SENNA TAB PO SCH (08:29)
[2016-12-02] MEDS: LABETALOL 200 MG TAB PO SCH (08:29)
[2016-12-02] MEDS: MULTIVIT/MIN/FOLATE/IRON/PREN TAB PO SCH (08:29)
[2016-12-02 11:18] VITALS: BP 125/83; RESP 18
--- NOTE | 2016-12-02 11:19 | PD.PPDC ---
COMMUNITY DEVELOPMENT DIRECTOR Discharge Instruction Condition Patient Condition: Good Activity/Restrictions Activity: Normal Activity May Shower Restrictions: No Exercising No Lifting No Driving No Sexual Activity Nothing in the Vagina No [place] No Tampons, douche Wound/Drain Care Instructions Wound/Drain Care Instructions: Remove Steri Strips in 1 week Follow-up Follow-up with Physician: 4, Day/Days Provider Information: Appointment clinic in 4 days for post and blood pressure check Referral Agency Name and Phone Number: [facility] Return to clinic for RN MDS Instructions: Fever greater than 101 Chills Worsening abdominal pain Excessive Vaginal Bleeding OB Instructions: Breast Tenderness Depression Blurried Vision Headache Surgical Instructions: Incisional Drainage Incisional Redness JOSELUIS WESTON MD Dec 02, 2016 11:19
--- NOTE | 2016-12-02 11:37 | DS ---
Date/Time of Note Date/Time of Note DATE: 12/02/16 TIME: 11:30 Discharge Summary Admission/Discharge Info Admit Date/Time Nov 23, 2016 at 23:00 Discharge Date/Time December 02, 2016 at 11:30 a.m. Discharge Diagnosis Post day 9 for severe PIH at 32 weeks of with IUGR baby placed at 3 percentile is being discharged home in a stable condition with post PIH, follow-up instructions recommended to be seen at the clinic in 4 days advised to monitor her blood pressures at home prior to taking labetalol 100 mg twice daily also she was instructed how to care of her incision at home Patient Condition: Good Consults Internal medicine for chest pain which will do workup was negative for any abnormality of the heart Procedures Primary for severe PIH Hx of Present Illness at 32 weeks gestation complicated with severe PIH with IUGR baby Hospital Course IMP: 1. Chest pain-negTIVE TROP X 3/RESOLVED CHEST PAIN. Echo 11/30 NL EF/no sig valve abnl 2. Hypertension-now on lower side with some medications being held 3. s/p c section delivery 4. GERD 5. Abnl ecg-negative trop x 3/NL EF. NL variant for patient Recc: -Tele -serial ecg's -Procardia was d/c'd. Will thus make slight increase to labetelol to improve BP control -If no chest pain and BP stable then d/c planning Home Meds Reported Medications Multivit/Min/Fol Ac/Iron/Pren* ( S*) 1 Tab Tab, 1 TAB PO DAILY, TAB 10/26/16 Follow-up Plan Appointment clinic in 4 days Primary Care Provider Herbie Pierre Time spent on discharge: > 30 minutes Pending Labs Laboratory Tests Test 12/01/16 12:15 12/01/16 18:55 Magnesium Level 5.0mg/dl (1.7-2.5) 4.9mg/dl (1.7-2.5) JOSELUIS WESTON MD Dec 02, 2016 11:37
--- NOTE | 2016-12-02 13:45 | CONS ---
Date/Time of Note Date/Time of Note DATE: 12/02/16 TIME: 13:45 Assessment/Plan Assessment/Plan Additional Assessment/Plan 26 yo F sp c section 6.22 now with preeclampsia. Hospitalist service consulted for chest pain, of note pt with hypotension this 6.27, resolved with change in BP regimen. #hypotension: etio unclear, suspect iatrogenic from BP meds cont current BP regimen Consultation Date/Type/Reason Admit Date/Time Nov 23, 2016 at 23:00 Type of Consultation: hospitalist 24 HR Interval Summary Free Text/Dictation Feels great. ready to go home Exam/Review of Systems Vital Signs Vitals Vital Signs Date Time Temp Pulse Resp B/P Pulse Ox O2 Delivery O2 Flow Rate FiO2 12/02/16 11:18 98.1 72 18 125/83 97 12/01/16 10:15 Room Air Intake and Output 12/01/16 12/01/16 12/02/16 15:00 23:00 07:00 Intake Total 150 ml 625 ml 800 ml Output Total 2400 ml 300 ml Balance -2250 ml 325 ml 800 ml Exam nad pleasant no mrg lungs clear abd soft no le edema Results Result Diagram: 11/28/16 0630 Results 24 hrs Laboratory Tests Test 12/01/16 18:55 Magnesium Level 4.9 H Medications Medications Current Medications Prenat Multivit/ [employer]/Iron/Folic Ac ( S) 1 tab DAILY PO Last administered on 12/02/16 08:29; Admin Dose 1 TAB; Start 11/24/16 at 09:00 Senna (Senokot) 1 tab DAILY PO Last administered on 12/02/16 08:29; Admin Dose 1 TAB; Start 11/24/16 at 09:00 Al Hydrox/Mg Hydrox/Simethicone (Mag-Al Plus) 30 ml Q6H PRN PO GASTROINTESTINAL UPSET Last administered on 11/29/16 22:14; Admin Dose 30 ML; Start 11/23/16 at 23:00 Oxycodone/ Acetaminophen (Percocet (5/ 325)) 1 tab Q4H PRN PO PAIN LEVEL 4-6 Last administered on 11/28/16 05:33; Admin Dose 1 TAB; Start 11/26/16 at 00:00 Oxycodone/ Acetaminophen (Percocet (5/ 325)) 2 tab Q4H PRN PO PAIN LEVEL 7-10 Last administered on 11/26/16 22:34; Admin Dose 2 TAB; Start 11/26/16 at 00:00 Simethicone (Mylicon) 160 mg Q8H PRN PO DISTENSION/GAS/BLOATING Last administered on 11/27/16 09:00; Admin Dose 160 MG; Start 11/25/16 at 01:30 Methylergonovine Maleate (Methergine) 0.2 mg ONCE PRN IM VAGINAL BLEEDING; Start 11/25/16 at 01:30 Carboprost Tromethamine (Hemabate) 250 mcg ONCE PRN IM VAGINAL BLEEDING; Start 11/25/16 at 01:30 Misoprostol (Cytotec) 1,000 mcg ONCE PRN [place] VAGINAL BLEEDING; Start 11/25/16 at 01:30 Acetaminophen (Tylenol Tab) 650 mg Q6H PRN PO PAIN AND OR ELEVATED TEMP Last administered on 11/29/16 05:12; Admin Dose 650 MG; Start 11/25/16 at 01:30 Bisacodyl (Dulcolax Supp) 10 mg ONCE PRN AR constipation; Start 11/25/16 at 01: 30 Senna/Docusate Sodium (Senokot-S) 1 tab BID PRN PO CONSTIPATION Last administered on 11/29/16 07:58; Admin Dose 1 TAB; Start 11/25/16 at 01:30 Magnesium Hydroxide (Milk Of Mag) 30 ml BID PRN PO CONSTIPATION; Start at 01:30 Ondansetron HCl (Zofran Inj) 4 mg Q6H PRN IV NAUSEA AND/OR VOMITING Last administered on 11/29/16 09:18; Admin Dose 4 MG; Start 11/25/16 at 01:30 Nitroglycerin (Nitroglycerin (Sl Tab) 0.4 Mg) 1 tab Q5M PRN SL ANGINA Last administered on 11/29/16 00:26; Admin Dose 1 TAB; Start 11/28/16 at 10:00 Pantoprazole (Protonix Tab) 40 mg BID@06,18 PO Last administered on 12/02/16 05:43; Admin Dose 40 MG; Start 11/28/16 at 18:00 Labetalol HCl (Normodyne) 200 mg BID PO Last administered on 6/29/17at 08:29; Admin Dose 200 MG; Start 12/01/16 at 21:00 ROXY ALVARENGA MD Dec 02, 2016 13:45
[2016-12-03] MEDS ORDERED: AMO500 PO (22:08)
== END 2016-12-02 15:02 | disposition home or self-care (01) | DRG 765 ==
LOC: L-D 22:09 → OBT 22:09 → L-D 23:00 → OBT 23:00 → OBG 11-24 03:44 → L-D 11-24 22:28 → OBG 11-25 04:15 → PP1 11-27 21:10 → TEL 11-28 10:35
PROVIDERS: ADMIT Obstetrics & Gynecology; ATTEND Obstetrics & Gynecology
PROC: 10D00Z1 Extraction of Products of Conception, Low, Open Approach (ICD-10-PCS; principal; 2016-11-25)
DX: O14.14 Severe pre-eclampsia complicating childbirth (principal); O41.03X0 Oligohydramnios, third trimester, not applicable or unspecified; O36.5930 Maternal care for other known or suspected poor fetal growth, third trimester, not applicable or unspecified; O76 Abnormality in fetal heart rate and rhythm complicating labor and delivery; O99.02 Anemia complicating childbirth; D64.9 Anemia, unspecified; O99.62 Diseases of the digestive system complicating childbirth; K21.9 Gastro-esophageal reflux disease without esophagitis; O75.89 Other specified complications of labor and delivery; R07.89 Other chest pain; R94.31 Abnormal electrocardiogram [ECG] [EKG]; Z37.0 Single live birth; Z3A.32 32 weeks gestation of pregnancy
CPT/HCPCS: 36415; 71275; 76815; 76816; 76817; 76818; 76820; 80053; 80076; 81001; 81003; 83735; 84156; 84484; 84560; 85025; 85610; 85730; 86592; 86850; 86900; 86901; 87086; 88307; 93005; 93306; 94760; 96360; 96361; 96365; 96366; 96372; 99464; G0463; J0690; J0702; J1170; J1885; J2175; J2274; J2405; J2590; J2765; J3475; J7030; J7040; J7120; Q9967

== ENCOUNTER 2016-12-03 19:50 | Emergency (ER) | payer OTHER ==
[~2016-12-03] VITALS: Ht 157.5 cm; Wt 54.5 kg
[2016-12-03 19:58] VITALS: Ht 157.5 cm; Wt 54.5 kg
[2016-12-03] MEDS ORDERED: AMO500 PO (22:08)
--- NOTE | 2016-12-03 22:08 | ERD ---
ER Documentation Chief Complaint Date/Time DATE: 12/03/16 TIME: 22:05 Chief Complaint numbness right side of face x 1 day HPI This 26-year-old female presents to emergency department with right-sided maxillary tenderness, headache behind her eye, reports ear pain and jaw pain. Patient states that she is just given and that her baby is upstairs in the NICU, patient is currently breast pumping, denies shortness of breath, chest pain, dizziness or palpitations. ROS All systems reviewed and are negative except as per history of present illness. Medications Home Meds Active Scripts Amoxicillin* (Amoxicillin*) 500 Mg Cap, 500 MG PO TID for 10 Days, CAP Prov:MARIANELA,ISRAEL 12/03/16 Reported Medications Multivit/Min/Fol Ac/Iron/Pren* ( S*) 1 Tab Tab, 1 TAB PO DAILY, TAB 10/26/16 Allergies Allergies: Coded Allergies: No Known Drug Allergy (Verified Allergy, Unknown, 12/03/16) PMhx/Soc Medical and Surgical Hx: pt denies Medical Hx, pt denies Surgical Hx Hx Alcohol Use: No Hx Substance Use: No Hx Tobacco Use: No Smoking Status: Never smoker Physical Exam Vitals Vital Signs Date Time Temp Pulse Resp B/P Pulse Ox O2 Delivery O2 Flow Rate FiO2 12/03/16 22:28 98.9 77 20 154/99 98 Room Air 12/03/16 19:58 99.8 110 20 154/99 98 Data stable, triage notes reviewed Physical Exam Const: Well-nourished, well-hydrated, well-appearing ,no acute distress Head: Atraumatic Eyes: Normal Conjunctiva ENT: Bilateral tympanic membranes translucent, auditory canals are clear, nasal mucosa edematous, turbinates +3, purulent discharge noted right naris, positive maxillary and frontal sinus tenderness, patient has pressure behind eyes when leaning forward, oropharynx presents with postnasal drip, Neck: Full range of motion..~ No meningismus. Resp: Clear to auscultation bilaterally no rales wheezes around Cardio: Abd: Abdomen soft, day 2 Skin: Back: Ext: Neur: Awake and alert Psych: Mood is sad, affect is flat patient is not easily talking about her baby. Departure Diagnosis: Primary Impression: Sinusitis, acute maxillary Recurrence: not specified as recurrent Qualified Code: J01.00 - Acute maxillary sinusitis, recurrence not specified Condition: Good Patient Instructions: Acute Sinusitis Additional Instructions: Thank you for for coming to [facility] for your care today. Please ask your nurse or provider if you have questions about your care today and do not leave until all your questions have been answered. Please use any medications given as directed and follow-up with your doctor (or the doctor you were referred to) in the next 2-3 days. If you do not have a primary care doctor you may follow up at the [facility] (listed below). You may also use motrin and tylenol as needed for fever and/or pain unless instructed otherwise by your provider or nurse. Indications for more urgent follow-up have been discussed, but you may return to the Emergency Department at ANY time for any worrisome or worsening symptoms. If you have abdominal pain, please know that no test or exam you received is perfect and you should follow up within 8 hours for continued pain. If you had any imaging studies today, such as an X-Ray or CT Scan, these studies will be reviewed later by a radiologist. You will be called if there are important findings that were not identified today, so make sure the contact information you provided at registration is correct. If you received any narcotic pain control medicine today, such as Vicodin, Morphine or Dilaudid, your coordination and judgment may be affected for a number of hours. Please do not drive or operate heavy machinery, and you may want someone to assist you at home. If you were given a prescription for narcotic medication, be aware that it is very addictive- use sparingly and only if necessary. ISRAEL BEAR Dec 03, 2016 22:08
[2016-12-03 22:28] VITALS: BP 154/99; PULSE 77; RESP 20; TEMP 98.9
== END 2016-12-03 22:30 | disposition home or self-care (01) ==
LOC: FTE 19:50
DX: J01.00 Acute maxillary sinusitis, unspecified (principal)
CPT/HCPCS: 99283